=== PATIENT | male | born 1955 | race Caucasian/White ===

== ENCOUNTER 2024-02-11 11:54 | Emergency (ER) | payer MEDICARE, SELFPAY ==
[2024-02-11] VITALS (10 sets, daily range): BP systolic 163–168; BP diastolic 86–88; PULSE 73–95; TEMP 36.6; O2SAT 98–100; BMI 26.6
--- NOTE | 2024-02-11 12:33 | ECG_ITS ---
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
[2024-02-11] MEDS: MORPHINE SULFATE 4 MG/ML VIAL IV (12:57)
[2024-02-11] MEDS: ONDANSETRON PF 4 MG/2 ML VIAL IV (12:57)
--- NOTE | 2024-02-11 13:20 | CT_ITS ---
The [address] [address] Patient Name: CHEYENNE CASON MRN: [id number] date: 1955 Sex: M Assigned Patient Location: ER Current Patient Location: ER Accession/Order Number: [id number] Exam Date: 02/11/2024 13:05 Report Date: 02/11/2024 13:41 At the request of: BARBIE ANNA Procedure: CT head/brain wo con EXAM: CT head/brain wo con, CT cervical spine wo con HISTORY: head injury COMPARISON: None. TECHNIQUE: Axial soft tissue and bone windows from the upper thoracic spine through the calvarium with coronal and sagittal reformats. CT dose reduction technique was used including Automated Exposure Control. Findings: Head: No depressed or calvarial fracture. The paranasal sinuses and mastoid air cells are well aerated. No air-fluid levels. No extra-axial fluid collection. No bleed. No mass effect or midline shift. The walker-white matter differentiation is preserved. The brain parenchymal volume is mildly reduced yet likely age-appropriate. The ventricles are nondilated. The basal cisterns are patent. The craniovertebral junction is unremarkable. Cervical spine: No prevertebral soft tissue swelling. No acute fracture or malalignment. Moderate to severe multilevel degenerative spondylosis. No severe canal stenosis. The visualized lung apices are unremarkable. CT/CT head/brain wo con IMPRESSION: 1. No depressed or calvarial fracture. 2. No acute intracranial bleed. 3. No acute cervical spine fracture or malalignment. Electronically authenticated by: MISBAH MART Date: 02/11/2024 13:41
--- NOTE | 2024-02-11 13:20 | CT_ITS ---
The [address] [address] Patient Name: CHEYENNE CASON MRN: [id number] date: 1955 Sex: M Assigned Patient Location: ER Current Patient Location: ER Accession/Order Number: [id number] Exam Date: 02/11/2024 13:05 Report Date: 02/11/2024 14:15 At the request of: BARBIE ANNA Procedure: CT chest wo con EXAMINATION: CT chest wo con HISTORY: shortness of breath COMPARISON: No relevant comparison available. TECHNIQUE: Axial, Coronal, and Sagittal images were created without the administration of IV contrast material. Dose reduction techniques were achieved by using automated exposure control and/or adjustment of mA and/or kV according to patient size and/or use of iterative reconstruction technique. FINDINGS: LUNGS: Mild emphysematous changes. Trace amount of atelectasis within posterior dependent lung regions. A few scattered calcifications favoring chronic granulomas. PLEURA: No mass, effusion, or pneumothorax. VASCULATURE: No abnormality. JOSE: No mass or pathologic adenopathy. MEDIASTINUM: Calcified subcarinal lymph nodes suggestive of chronic granulomatous disease. CARDIAC: No enlargement, pericardial thickening, or pericardial effusion. Coronary Artery calcifications: Coronary calcifications are mild. AORTA: No aneurysm or dissection. CHEST WALL: No mass or axillary adenopathy BONES: Marked degenerative disc disease of the visible lower cervical spine and moderate degenerative disc disease of mid thoracic spine. No bone lesion or fracture. LIMITED ABDOMEN: No suspicious findings. Limited images of the upper abdomen. OTHER: Negative. CT/CT chest wo con IMPRESSION: 1. Mild emphysematous changes and mild atelectasis. 2. No acute infiltrates or suspicious findings to account for patient's symptoms. Electronically authenticated by: BRICE BANG Date: 02/11/2024 14:15
--- NOTE | 2024-02-11 13:20 | CT_ITS ---
The [address] [address] Patient Name: CHEYENNE CASON MRN: [id number] date: 1955 Sex: M Assigned Patient Location: ER Current Patient Location: ER Accession/Order Number: [id number] Exam Date: 02/11/2024 13:05 Report Date: 02/11/2024 13:41 At the request of: BARBIE ANNA Procedure: CT cervical spine wo con EXAM: CT head/brain wo con, CT cervical spine wo con HISTORY: head injury COMPARISON: None. TECHNIQUE: Axial soft tissue and bone windows from the upper thoracic spine through the calvarium with coronal and sagittal reformats. CT dose reduction technique was used including Automated Exposure Control. Findings: Head: No depressed or calvarial fracture. The paranasal sinuses and mastoid air cells are well aerated. No air-fluid levels. No extra-axial fluid collection. No bleed. No mass effect or midline shift. The walker-white matter differentiation is preserved. The brain parenchymal volume is mildly reduced yet likely age-appropriate. The ventricles are nondilated. The basal cisterns are patent. The craniovertebral junction is unremarkable. Cervical spine: No prevertebral soft tissue swelling. No acute fracture or malalignment. Moderate to severe multilevel degenerative spondylosis. No severe canal stenosis. The visualized lung apices are unremarkable. CT/CT cervical spine wo con IMPRESSION: 1. No depressed or calvarial fracture. 2. No acute intracranial bleed. 3. No acute cervical spine fracture or malalignment. Electronically authenticated by: MISBAH MART Date: 02/11/2024 13:41
[2024-02-11] MEDS: CYCLOBENZAPRINE HCL 10 MG TABLET PO (15:13)
--- NOTE | 2024-02-11 16:19 | ED_ITS ---
HPI HPI - General Adult General Chief complaint: Neck Pain/Injury Stated complaint: HEAD INJURY/NECK INJURY Time Seen by Provider: 02/11/24 12:08 Source: patient Mode of arrival: Wheelchair Limitations: no limitations History of Present Illness HPI narrative: 68-year-old male to the emergency department chief complaint of head injury and neck pain. Patient reports he was cutting down a branch from a tree and it fell on his head. He did not get knocked out or lose consciousness. He reports some pain on the top of his head back of his neck. He denies any chest pain or shortness of breath. He denies any vision changes, numbness, weakness, tingling, difficulty walking. He is otherwise at his baseline health. Related Data Previous Rx's ?Medication ?Instructions ?Recorded cyclobenzaprine 10 mg tablet 10 mg PO BID PRN muscle spasm #10 02/11/24 tabs naproxen 500 mg tablet 500 mg PO BID PRN pain #14 tabs 02/11/24 Allergies Allergy/AdvReac Type Severity Reaction Status Date / Time diphenhydramine AdvReac Severe Shakiness Verified 02/11/24 12:00 [From Benadryl] meperidine [From Demerol] AdvReac Severe Vomiting Verified 02/11/24 12:00 Opioid HPI Opioid Management Most Recent Opioid Data: Last Pain Scale 8 02/11/24 12:57 Last ED Pain Assessment 02/11/24 12:27 Last MAR Pain Assessment 02/11/24 12:57 Review of Systems ROS Status of ROS 10 or more systems reviewed and unremark able except as noted in history and below Exam Narrative Exam Narrative: VITALS: I have reviewed the triage vital signs. GENERAL: Well developed, well appearing adult male in no acute distress. NEURO: Alert and oriented x4. Moves all extremities. Face is symmetric and expressive. Cranial nerves II through XII grossly intact as tested. Muscular strength and sensation grossly intact upper and lower extremities bilaterally. No dysarthria. No aphasia. No ataxia. Normal gait. NIHSS 0. EYES: PERRL. No scleral icterus or conjunctival injection. No discharge. HENT: Normocephalic. No scalp hematoma. Small occipital abrasion. Hearing is grossly intact. Nares grossly patent and without discharge. Mucous membranes moist. NECK: No JVD. Mild discomfort with range of motion of the neck. No midline tenderness. CARDIO: Rhythm regular. Normal rate. No murmur, rub, or gallop. Pulses equal bilaterally in the upper and lower extremity. No lower extremity edema. PULM: Lungs clear to auscultation in all jack. No wheezes, rales, or rhonchi. No conversational dyspnea. No splinting, stridor, or accessory muscle use. GI/: Abdomen is soft and non-tender. Normoactive bowel sounds. EXTREMITIES: Symmetric muscle bulk. No joint swelling. No clubbing, cyanosis, or deformity. SKIN: Warm and dry. Normal turgor. No rash or lesions appreciated. PSYCH: Mood, affect, and interaction is appropriate to the setting. Constitutional Vital Signs, click to edit/add: Last Vital Signs Temp 98 F 02/11/24 12:01 Pulse 79 02/11/24 13:02 Resp 14 02/11/24 13:02 BP 163/88 H 02/11/24 14:06 Pulse Ox 99 02/11/24 14:30 O2 Del Method Room Air 02/11/24 12:01 Course Vital Signs Vital signs: Vital Signs Temperature 98 F 02/11/24 12:01 Pulse Rate 95 H 02/11/24 12:01 Respiratory Rate 20 02/11/24 12:01 Blood Pressure 168/86 H 02/11/24 12:01 Pulse Oximetry 100 02/11/24 12:01 Oxygen Delivery Method Room Air 02/11/24 12:01 Temperature 98 F 02/11/24 12:01 Pulse Rate 79 02/11/24 13:02 Respiratory Rate 14 02/11/24 13:02 Blood Pressure 163/88 H 02/11/24 14:06 Pulse Oximetry 99 02/11/24 14:30 Oxygen Delivery Method Room Air 02/11/24 12:01 Medical Decision Making MDM Narrative Medical decision making narrative: 68-year-old male to the emergency department after being struck in the head with a branch. Vital stable, patient is afebrile. Neurologic examination nonfocal. Given his age head and C-spine cannot be ruled out by clinical decision rules alone therefore CT imaging is ordered. There is some discomfort at the cervical thoracic junction therefore we will also include a chest for the thoracic spine. Morphine and Zofran ordered for pain. Patient agrees with this plan. CT head: Negative CT C-spine: Negative CT chest: Negative Patient reevaluated. He is able to ambulate. No focal neurologic deficits. No evidence of central cord syndrome. His pain was controlled. He reports he is getting some spasm-like pain in his neck and requested Flexeril prescription. First dose given in the ER. Prescription is given for home. He will follow-up with his PCP. We discussed concussion signs symptoms and management. I offered tetanus update given the abrasion to his scalp and he declined. Return precautions were discussed. All questions were answered. Patient was discharged home. Medical Records Medical records reviewed: Yes I reviewed the patient's medical records Imaging Data CT scan - head: Radiologist's impression: ITS Impressions Cervical Spine CT 02/11/24 13:20 IMPRESSION: 1. No depressed or calvarial fracture. 2. No acute intracranial bleed. 3. No acute cervical spine fracture or malalignment. Electronically authenticated by: MISBAH MART Date: 02/11/2024 13:[address] 02/11/24 13:20 IMPRESSION: 1. Mild emphysematous changes and mild atelectasis. 2. No acute infiltrates or suspicious findings to account for patient's symptoms. Electronically authenticated by: BRICE BANG Date: 02/11/2024 14:[address] 02/11/24 13:20 IMPRESSION: 1. No depressed or calvarial fracture. 2. No acute intracranial bleed. 3. No acute cervical spine fracture or malalignment. Electronically authenticated by: MISBAH MART Date: 02/11/2024 13:41 Discharge Plan Discharge Stand Alone Forms: Work/School Release, Portal Instructions Chief Complaint: Neck Pain/Injury Clinical Impression: Strain of neck muscle, Closed head injury Patient Disposition: Home, Self-Care Time of Disposition Decision: 15:07 Condition: Good Mode of Transportation: Private Vehicle Prescriptions / Home Meds: New cyclobenzaprine 10 mg tablet 10 mg PO BID PRN (Reason: muscle spasm) Qty: 10 0RF naproxen 500 mg tablet 500 mg PO BID PRN (Reason: pain) Qty: 14 0RF Print Language: Estonian Instructions: Head Injury (ED), Cervical Sprain (ED) Additional Instructions: Call the office of your primary care doctor to arrange for follow-up within the above-stated timeframe. Your ED visit was focused on your acute issue and does not replace primary care. You should review your labs, imaging, and diagnoses from this ED visit with your primary care physician. There may be non-emergent/ incidental findings that need further evaluation. You should review your vital signs including blood pressure with your PCP. If you were prescribed medications you should discuss possible side-effects and drug interactions with your pharmacist. Call 911 or go to the nearest Emergency Department if you develop any new or worsening symptoms. Seek immediate medical attention if you develop: new or worsening headache, nausea, vomiting, confusion, weakness, loss of motion in your arms or legs, loss of control of your urine or stool, difficulty waking from sleep, or any new or worsening symptoms. Seek immediate medical attention if you develop: increasing pain, numbness, tingling, weakness, loss of motion in your arms or legs, loss of control of your urine or stool, fever, abdominal pain, chest pain, shortness of breath, or any new or worsening symptoms. Referrals: Physician,Non-Staff, MD [Primary Care Provider] - 1 week Discharge Date/Time: 02/11/24 15:20
== END 2024-02-11 15:20 | disposition home or self-care (01) ==
PROVIDERS: Emergency Provider Student in an Organized Health Care Education/Training Program
DX: S09.8XXA Other specified injuries of head, initial encounter (principal); S16.1XXA Strain of muscle, fascia and tendon at neck level, initial encounter; W20.8XXA Other cause of strike by thrown, projected or falling object, initial encounter
CPT/HCPCS: 70450; 71250; 72125; 93005; 96374; 96375; 99285; J2270; J2405

== ENCOUNTER 2024-02-18 07:30 | Outpatient (OUT) | payer MEDICARE, SELFPAY ==
--- NOTE | 2024-02-18 | XR_ITS ---
The [place] [id number] Patient Name: CHEYENNE CASON MRN: [id number] date: 1955 Sex: M Assigned Patient Location: [facility] Current Patient Location: Accession/Order Number: [id number] Exam Date: 02/18/2024 07:45 Report Date: 02/19/2024 05:20 At the request of: CHUNG COOK Procedure: XR shoulder LT min 2V PROCEDURE: XR shoulder LT min 2V HISTORY: injury of left shoulder, initial encounter COMPARISON: None. FINDINGS: BONES:Bone anchor from prior rotator cuff repair within lateral aspect of humeral head. No fracture, dislocation, bone lesion. Mild degenerative changes of acromioclavicular joint. SOFT TISSUES:No visible soft tissue swelling. EFFUSION:None visible. OTHER: Negative. XR/XR shoulder LT min 2V IMPRESSION: 1. Surgical changes and mild degenerative changes. 2. No appreciable acute abnormality. Electronically authenticated by: BRICE BANG Date: 02/19/2024 05:20
--- OUTSIDE RECORDS SUMMARY | 2024-02-18 07:34 | XMS_ITS | CCD ---
Author Organization [facility] Providers Care [employer] Name Role Phone Sherwin Haney Unavailable Unavailable Unavailable Olexa, Jackie Unavailable Niurka Huertas Unavailable DR EMILY CAMARILLO V Consulting Unavailable OLEXA, JACKIE Admitting Unavailable OLEXA, JACKIE Attending Unavailable OLEXA, JACKIE Consulting Unavailable BETI, DR BRICE Rodney Consulting Unavailable DIANE, DR GARCIA Primary Care Unavailable OLEXA, JACKIE Admitting Unavailable OLEXA, JACKIE Attending Unavailable WILLI PINON Consulting Unavailable OLEXA, JACKIE Consulting Unavailable OLEXA, JACKIE Attending Unavailable DIANE, DR GARCIA Primary Care Unavailable WILLI PINON Consulting Unavailable OLEXA, JACKIE Admitting Unavailable OLEXA, JACKIE Consulting Unavailable OLEXA, JACKIE Attending Unavailable JAIDEN BAPTISTE Consulting Unavailable DIANE, DR GARCIA Primary Care Unavailable OLEXA, JACKIE Admitting Unavailable NATALY SILVERMAN Consulting Unavailable OLEXA, JACKIE Consulting Unavailable OLEXA, JACKIE Attending Unavailable JAIDEN BAPTISTE Consulting Unavailable DIANE, DR GARCIA Primary Care Unavailable OLEXA, JACKIE Admitting Unavailable SERGE GUERRA Consulting Unavailable OLEXA, JACKIE Consulting Unavailable AASHISH STRINGER Primary Care Physician [phone] Niurka Mg Attending Unavailable Niurka Mg Admitting Unavailable [facility] Unavailable MALLORY Mg [facility] Julio OROZCO Attending Unavailable NIURKA MG Attending Unavailable NIURKA MG Attending Unavailable Julio OROZCO Admitting Unavailable Julio OROZCO Attending Unavailable Julio OROZCO Referring Unavailable Julio OROZCO Admitting Unavailable Julio OROZCO Attending Unavailable Julio OROZCO Referring Unavailable Allergies Allergy Classification Reported Allergen(s) Allergy Type Date of Onset Reaction(s) Facility (15 sources) diphenhydrAMINE; Translations: [diphenhydrAMINE] Drug Allergy 2 Restless legs (disorder) [facility] (18 sources) Meperidine; Translations: [meperidine] Drug Allergy 2 Nausea (finding) [facility] (2 sources) carvedilol; Translations: [Coreg TABS] Drug Allergy [facility] 600 DO Work Phone: (1 source) diphenhydrAMINE Drug Allergy [facility] Repository (2 sources) Meperidine; Translations: [Demerol] Drug Allergy [facility] Repository (1 source) diphenhydrAMINE Drug Allergy 2 [facility] Repository (1 source) Meperidine Drug Allergy 2 [facility] Repository Medications Current Medications Medication Drug Class(es) Dates Sig (Normalized) Sig (Original) acetaminophen 325 mg / HYDROcodone bitartrate 5 mg oral tablet (5 sources) Opioid Agonist Start: 01-06-2022 take 1 tablet by mouth every four hours as needed for pain HYDROcodone-Aceta minophen 5-325 MG 1 tablet as needed for pain Orally up to every 4 hrs for 7 days ESHA: [id number] Jan, Active Start: 08-26-2021 take 1 tablet by collette th every four hours as needed for pain HYDROcodone-Acetaminophen 5-325 MG 1 tab let as needed for pain Orally up to every 4 hrs for 5 days Aug, Active Start: 11-07-2017 End: 12-18-2020 take 1 tablet by mouth every six hours Hydrocodone-Acetaminophen (Patriot) 5-325 mg tablet Discontinued 1 TAB PO Q6H November 07, 2017 December 18, 2020 9:33am aspirin 81 mg delayed release oral tablet (1 source) Platelet Aggregation Inhibitor, Nonsteroidal Anti-inflammatory Drug Start: 12-18-2020 take 81 mg by mouth once daily Aspirin Active 81 MG PO Daily December 18, 2020 12:00am B-Complex with B-12 (3 sources) Start: 09-22-2023 B-Complex with B-12 Oral, Daily Start Date: 09/22/23 Status: Ordered carvedilol 3.125 mg oral tablet (1 source) alpha-Adrenergic Juancho, beta-Adrenergic Juancho Start: 12-21-2020 take 1 tablet by mouth twice daily at mealtime Carvedilol (Coreg) 3.125 mg tablet Active 3.125 MG PO Twice daily 60 December 21, 2020 12:00am must administer with a meal/food ciprofloxacin 500 mg oral tablet (1 source) Quinolone Antimicrobial Start: 02-11-2024 take 1 tablet by mouth twice daily Cipro 500 mg Tab 500 mg = 1 tab(s), Oral, BID, start 3 days prior to procedure, # 14 tab(s), Refills(s) 0, Pharmacy: [facility]/pharmacy #[id number], 176, cm, 12/22/23 8:42:00 EDT, Height/Length Dosing, 82, kg, 12/22/23 8:42:00 EDT, Weight Dosing Start Date: 02/11/24 Status: Ordered cyclobenzaprine hydrochloride 10 mg oral tablet (5 sources) Muscle Relaxant Start: 11-07-2017 take 10 mg by mouth every eight hours Cyclobenzaprine Active 10 MG PO Q8H November 07, 2017 12:00am Flexeril 10 MG T ABS TAKE 1 TABLET DAILY NEEDED. Quantity: 0 Refills: 0 Ordered: 21-May-2021 DO Active Fish Oils (1 source) Start: 09-22-2023 Fish Oil Oral Start Date: 09/22/23 Status: Ordered Multi Vitamins oral tablet (3 sources) Start: 09-22-2023 Multi Vitamins oral tablet Oral, Daily Start Date: 09/22/23 Status: Ordered Multivitamin (Multiple Vitamins) Tablet (1 source) Start: 03-16-2017 take 1 tablet by mouth once daily Multivitamin (Multiple Vitamins) Tablet Active 1 TAB PO Daily March 16, 2017 12:00am naproxen 500 mg oral tablet (1 source) Nonsteroidal Anti-inflammatory Drug Start: 11-07-2023 End: 11-21-2023 take 1 tablet by mouth twice daily at mealtime Naprosyn 500 mg Tab 500 mg = 1 tab(s), Oral, BID, with food, X 14 day(s), # 28 tab(s), Refills(s) 0, Pharmacy: [facility]/pharmacy #[id number] Start Date: 11/07/23 Stop Date: 11/21/23 Status: Ordered oxaprozin 600 mg oral tablet (3 sources) Nonsteroidal Anti-inflammatory Drug Start: 11-07-2017 take 600 mg by mouth twice daily Oxaprozin Active 600 MG PO Twice daily November 07, 2017 12:00am Psyllium (3 sources) Start: 09-22-2023 Metamucil Oral Start Date: 09/22/23 Status: Ordered sulfamethoxazole 800 mg / trimethoprim 160 mg oral tablet (1 source) Dihydrofolate Reductase Inhibitor Antibacterial, Sulfonamide Antimicrobial Start: 11-07-2023 End: 11-21-2023 Bactrim D.S. 800 mg-160 mg Tab 1 tab(s), Oral, BID for 14 day(s), 28 tab(s), Refill(s) 0, [facility]/pharmacy #[id number] Start Date: 11/07/23 Stop Date: 11/21/23 Status: Ordered Vitamin B Complex (8 sources) Start: 03-16-2017 take 2 tablets by mouth once daily Vitamin B Complex Active 2 TAB PO Daily March 16, 2017 12:00am Vitamin B Comple x Active Completed/Discontinued Medications Medication Drug Class(es) Dates Sig (Normalized) Sig (Original) empagliflozin 10 mg oral tablet (2 sources) Sodium-Glucose Cotransporter 2 Inhibitor Start: 01-09-2022 take 1 tablet by mouth once daily Jardiance 10 MG Oral Tablet TAKE 1 TABLET BY MOUTH ONCE DAILY Quantity: 90 Refills: 0 Ordered: 09-Jan-2022 Liam Shi MD Start : 09-Jan-2022 Active new start ibuprofen 800 mg oral tablet (1 source) Nonsteroidal Anti-inflammatory Drug Start: 03-16-2017 End: 11-07-2017 take 800 mg by mouth three times daily Ibuprofen Discontinued 800 MG PO Three times daily March 16, 2017 9:43pm November 07, 2017 7:34pm Multi-Vitamin Oral Tablet (4 sources) take 1 tablet by mouth once daily Multi-Vitamin Oral Tablet TAKE 1 TABLET DAILY. Quantity: 0 Refills: 0 Ordered: 21-May-2021 DO Active Gregory 7-Ojt-Hhh-Fish Oil (Fish Oil) 1,000 mg (120 mg-180 mg) Capsule (1 source) Start: 03-16-2017 End: 12-18-2020 take 1 capsule by mouth once daily Gregory 9-Dqt-Vyx-Fish Oil (Fish Oil) 1,000 mg (120 mg-180 mg) Capsule Discontinued 1000 MG PO Daily March 16, 2017 12:00am December 18, 2020 9:32am sacubitril 49 mg / valsartan 51 mg oral tablet (12 sources) Angiotensin 2 Receptor Juancho Start: 01-01-2022 take 1 tablet by mouth twice daily Entresto 49-51 MG Oral Tablet take 1 tablet by mouth twice a day Quantity: 180 Refills: 3 Ordered: 11-Feb-2022 Liam Shi MD Start : 01-Jan-2022 Active Start: 12-18-2020 take 1 tablet by collette th twice daily Sacubitril-Valsartan (Entresto) 24-26 mg tablet Active 1 TAB PO Twice daily December 18, 2020 12:00am ENTRESTO Active take 1 tablet by collette th twice daily Entresto 49-51 MG Oral Tablet TAKE 1 TABLET BY MOUTH TWICE A DAY Quantity: 0 Refills: 0 Ordered: 21-May-2021 DO Active spironolactone 25 mg oral tablet (4 sources) Aldosterone Antagonist Start: 05-21-2021 take 1 tablet by mouth once daily Spironolactone 25 MG Oral Tablet TAKE 1 TABLET DAILY. Quantity: 90 Refills: 3 Ordered: 21-May-2021 Liam Shi MD Start : 21-May-2021 Active new start Triamcinolone (7 sources) Corticosteroid Start: 09-04-2016 Kenalog -40 mg 30 Aug, 2016 Vitamin B Complex Oral Tablet (4 sources) take 1 tablet by mouth once daily Vitamin B Complex Oral Tablet TAKE 1 TABLET DAILY. Quantity: 0 Refills: 0 Ordered: 21-May-2021 DO Active Problems Active Problems Problem Classification Problem Date Documented Date Episodic/Chronic Cardiac dysrhythmias (4 sources) Premature atrial contraction; Translations: [Supraventricular premature beats] Chronic Conduction disorders (5 sources) Left bundle branch block; Translations: [Other left bundle branch block] Onset: Chronic Congestive heart failure; nonhypertensive (12 sources) Chronic systolic heart failure; Translations: [Chronic systolic heart failure] Onset: 2 Chronic Disorders of lipid metabolism (1 source) Hyperlipidemia, unspecified; Translations: [HYPERLIPIDEMIA UNSPECIFIED] Onset: 2 Chronic Essential hypertension (4 sources) Hypertensive disorder; Translations: [Unspecified essential hypertension] Chronic Genitourinary symptoms and ill-defined conditions (5 sources) Urgent desire to urinate; Translations: [Urgency of urination] Onset: 4 Episodic Hemorrhoids (7 sources) Internal hemorrhoids without complication; Translations: [Internal hemorrhoids without mention of complication] Episodic Hypertension with complications and secondary hypertension (1 source) Hypertensive heart disease with heart failure; Translations: [HTN HEART DISEASE W/HEART FAIL] Onset: 2 Chronic Osteoarthritis (13 sources) Osteoarthritis of knee; Translations: [Unilateral primary osteoarthritis, right knee] Onset: 2 Resolved: 2 Chronic Other and unspecified benign neoplasm (7 sources) History of polyp of colon; Translations: [History of colon polyps] Episodic Other and unspecified benign neoplasm (7 sources) Benign neoplasm of rectum and anal canal; Translations: [Benign neoplasm of rectum and anal canal] Episodic Other bone disease and musculoskeletal deformities (1 source) Costal chondritis 03-16-2017 Episodic Other connective tissue disease (1 source) Presence of right artificial knee joint; Translations: [PRESENCE RT ARTIFICIAL KNEE JOINT] Onset: 2 Chronic Other male genital disorders (4 sources) Male erectile dysfunction, unspecified; Translations: [Erectile dysfunction] Onset: 4 Chronic Other nervous system disorders (7 sources) Bilateral carpal tunnel syndrome; Translations: [Carpal tunnel syndrome, bilateral upper limbs] Chronic Other nervous system disorders (7 sources) Chronic pain; Translations: [Other chronic pain] Chronic Other nervous system disorders (1 source) Carpal tunnel syndrome, bilateral upper limbs Onset: 2 Resolved: 2 Chronic Other nervous system disorders (5 sources) Carpal tunnel syndrome of right wrist; Translations: [Carpal tunnel syndrome, right upper limb] Chronic Other nervous system disorders (6 sources) Carpal tunnel syndrome, right upper limb; Translations: [CARPAL TUNNEL SYND RIGHT UPPER LIMB] Onset: 2 Resolved: 2 Chronic Other nervous system disorders (3 sources) Carpal tunnel syndrome of left wrist; Translations: [Carpal tunnel syndrome, left upper limb] Chronic Other nervous system disorders (6 sources) Carpal tunnel syndrome, left upper limb; Translations: [CARPAL TUNNEL SYND LEFT UPPER LIMB] Onset: 2 Resolved: 2 Chronic Other nutritional; endocrine; and metabolic disorders (4 sources) Overweight in adulthood with body mass index of 25 or more but less than 30; Translations: [Overweight] Episodic Other screening for suspected conditions (not mental disorders or infectious disease) (8 sources) Electrocardiogram abnormal; Translations: [Nonspecific abnormal electrocardiogram [ECG] [EKG]] Onset: 4 Episodic Spondylosis; intervertebral disc disorders; other back problems (14 sources) Degeneration of cervical intervertebral disc; Translations: [Other cervical disc degeneration, unspecified cervical region] Chronic Spondylosis; intervertebral disc disorders; other back problems (7 sources) Cervical radiculopathy; Translations: [Radiculopathy, cervical region] Episodic Sprains and strains (9 sources) Sprain of knee; Translations: [Sprain of unspecified site of right knee, initial encounter] Onset: 2 Resolved: 2 Episodic Unclassified (1 source) CONTACT W/AND (SUSP) EXPOS COVID-19; Translations: [CONTACT W/AND (SUSP) EXPOS COVID-19] Onset: 2 Past or Other Problems Problem Classification Problem Date Documented Date Episodic/Chronic Nonspecific chest pain (5 sources) Chest discomfort; Translations: [Other chest pain] Onset: 08-27-2021 Episodic Other aftercare (1 source) half-way (current) use of anticoagulants; Translations: [ASSISTED CURRNT USE ANTICOAGULANTS] Onset: 01-08-2022 Episodic Other aftercare (1 source) Other long term care phlebotomist (current) drug therapy; Translations: [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 CURRENT DRUG THERAPY] Onset: 08-29-2021 Episodic Other connective tissue disease (5 sources) Pain in right hand; Translations: [PAIN IN RIGHT HAND] Onset: 08-20-2021 Resolved: 09-10-2021 Episodic Other connective tissue disease (2 sources) Pain in left hand; Translations: [PAIN IN LEFT HAND] Onset: 08-21-2021 Resolved: 09-10-2021 Episodic Other connective tissue disease (2 sources) Other shoulder lesions, right shoulder Onset: 09-10-2021 Resolved: 10-15-2021 Episodic Other nervous system disorders (2 sources) Anesthesia of skin; Translations: [ANESTHESIA OF SKIN] Onset: 12-30-2021 Resolved: 12-30-2021 Episodic Other non-traumatic joint disorders (2 sources) Pain in right shoulder Onset: 09-10-2021 Resolved: 10-15-2021 Episodic Residual codes; unclassified (3 sources) Other specified postprocedural states Onset: 09-10-2021 Resolved: 01-06-2022 Episodic Unclassified (4 sources) Never smoked tobacco; Translations: [Never a smoker] Results Test Name Value Interpretation Reference Range Facility [facility] 02-16-2024 Anion gap [Moles/Vol] 10 mmol/L Normal 6-16 [facility] Comment on above: Performed By: #### 2 [id number] #### [facility] [address] [place] [address] Calcium [Mass/Vol] 9.3 mg/dL Normal 8.9-11.1 [facility] Comment on above: Performed By: #### 2 [id number] #### [facility] [address] [place] [address] Chloride [Moles/Vol] 101 mmol/L Normal 101-111 [facility] Comment on above: Performed By: #### 2 [id number] #### [facility] [address] [place] [address] CO2 [Moles/Vol] 30 mmol/L Normal 21-31 [facility] Comment on above: Performed By: #### 2 [id number] #### [facility] [address] [place] [address] Creatinine [Mass/Vol] 0.9 mg/dL Normal 0.5-1.3 [facility] Comment on above: Performed By: #### 2 [id number] #### [facility] [address] [place] [address] Glucose [Mass/Vol] 113 mg/dL Normal 55-199 [facility] Comment on above: Performed By: #### 2 [id number] #### [facility] [address] [place] [address] Potassium [Moles/Vol] 4.0 mmol/L Normal 3.5-5.3 [facility] Comment on above: Performed By: #### 2 [id number] #### [facility] [address] [place] [address] Sodium [Moles/Vol] 137 mmol/L Normal 135-145 [facility] Comment on above: Performed By: #### 2 [id number] #### [facility] [address] [place] [address] Urea nitrogen [Mass/Vol] 13 mg/dL Normal 5-21 [facility] Comment on above: Performed By: #### 2 [id number] #### [facility] [address] [place] [address] Urea nitrogen/Creatinine [Mass ratio] 14 No Units Normal 10-20 [facility] Comment on above: Performed By: #### 2 [id number] #### [facility] [address] [place] [address] CBC w/ Auto Diffon 4 Basophils/100 WBC (Bld) 2.8 % High 0.0-2.0 [facility] Comment on above: Performed By: #### 2 [id number] #### [facility] [address] [place] [address] Basophils/Leukocytes Auto (Bld) [Pure # fraction] 0.2 E9/L Normal 0.0-0.2 [facility] Comment on above: Performed By: #### 2 [id number] #### [facility] [address] [place] [address] Eosinophils (Bld) [#/Vol] 0.1 E9/L Normal 0.0-0.5 [facility] Comment on above: Performed By: #### 2 [id number] #### [facility] [address] [place] [address] Eosinophils/100 WBC (Bld) 1.3 % Normal 0.0-8.0 [facility] Comment on above: Performed By: #### 2 [id number] #### [facility] [address] [place] [address] Erythrocyte distribution width (RBC) [Ratio] 13.9 % Normal 10.9-14.2 [facility] Comment on above: Performed By: #### 2 [id number] #### [facility] [address] [place] [address] Hematocrit (Bld) [Volume fraction] 47.5 % Normal 37.7-49.0 [facility] Comment on above: Performed By: #### 2 [id number] #### [facility] [address] [place] [address] Hemoglobin (Bld) [Mass/Vol] 16.0 g/dL Normal 13.5-17.5 [facility] Comment on above: Performed By: #### 2 [id number] #### [facility] [address] [place] [address] Lymphocytes (Bld) [#/Vol] 2.0 E9/L Normal 1.0-4.0 [facility] Comment on above: Performed By: #### 2 [id number] #### [facility] [address] [place] [address] Lymphocytes/100 WBC (Bld) 22.9 % Normal 14.0-50.0 [facility] Comment on above: Performed By: #### 2 [id number] #### [facility] [address] [place] [address] MCH (RBC) [Entitic mass] 32.4 pg Normal 27.0-34.0 [facility] Comment on above: Performed By: #### 2 [id number] #### [facility] [address] [place] [address] MCHC (RBC) [Mass/Vol] 33.6 g/dL Normal 31.4-36.0 [facility] Comment on above: Performed By: #### 2 [id number] #### [facility] [address] [place] [address] MCV (RBC) [Entitic vol] 96.3 fL Normal 80.0-100.0 [facility] Comment on above: Performed By: #### 2 [id number] #### [facility] [address] [place] [address] Monocytes (Bld) [#/Vol] 0.6 E9/L Normal 0.2-1.0 [facility] Comment on above: Performed By: #### 2 [id number] #### [facility] [address] [place] [address] Neutrophils (Bld) [#/Vol] 5.7 E9/L Normal 2.0-7.5 [facility] Comment on above: Performed By: #### 2 [id number] #### [facility] [address] [place] [address] Neutrophils/100 WBC (Bld) 66.1 % Normal 36.0-75.0 [facility] Comment on above: Performed By: #### 2 [id number] #### [facility] [address] [place] [address] Platelet mean volume (Bld) [Entitic vol] 8.5 fL Normal 6.4-10.8 [facility] Comment on above: Performed By: #### 2 [id number] #### [facility] [address] [place] [address] Platelets (Bld) [#/Vol] 258.0 E9/L Normal 150.0-500.0 [facility] Comment on above: Performed By: #### 2 [id number] #### [facility] [address] [place] [address] RBC (Bld) [#/Vol] 4.9 E12/L Normal 4.3-5.9 [facility] Comment on above: Performed By: #### 2 [id number] #### [facility] [address] [place] [address] WBC corrected for nucl RBC Auto (Bld) [#/Vol] 8.6 E9/L Normal 4.0-11.0 [facility] Comment on above: Performed By: #### 2 [id number] #### [facility] [address] [place] [address] CHEMISTRYOrdered By: SYSTEM SYSTEM on 02-16-2024 Anion gap [Moles/Vol] 10 mmol/L Normal 6 - 16 mEq/L R emisol Chem Calcium [Mass/Vol] 9.3 mg/dL Normal 8.9 - 11. 1 mg/dL [facility] Chloride [Moles/Vol] 101 mmol/L Normal 101 - 1 11 mmol/L [facility] CO2 [Moles/Vol] 30 mmol/L Normal 21 - 31 mmol/L [facility] Creatinine [Mass/Vol] 0.9 mg/dL Normal 0.5 - 1.3 mg/dL [facility] eGFR 93 mL/min/1.73 m2 Normal >=59mL/min /1 .73 m2 [facility] Glucose [Mass/Vol] 113 mg/dL Normal 55 - 199 mg/dL [facility] Potassium [Moles/Vol] 4.0 mmol/L Normal 3.5 - 5.3 mmol/L [facility] Sodium [Moles/Vol] 137 mmol/L Normal 135 - 145 mmol/L [facility] Urea nitrogen [Mass/Vol] 13 mg/dL Normal 5 - 21 mg/dL [facility] Urea nitrogen/Creatinine [Mass ratio] 14 mg/mg Normal 10 - 20 [facility] COAGULATIONOrdered By: Daniel Jimenez on 02-16-2024 aPTT Coag (PPP) [Time] 29.5 s Normal 25.1 - 36.5 second(s) [facility] Comment on above: Interpretive Data: Lalo thompson 15 days - 4 weeks 1 - 5 months 6 - 11 months 1 - 5 years 6 - 10 years 11 - 17 years PTT Mean: 35.4 (27.6-45.6) Mean: 33.5 (24.8-40.7) Mean: 32.4 (25.1-40.7) Mean: 31.6 (24.0-39.2) Mean: 31.6 (26.9-38.7) Mean: 31.0 (24.6-38.4) Pediatric Reference ranges were obtained from a study by Luis Mcdonald et al. prepared from 1437 samples obtained at 7 different centers using the same coagulation reagent and instrumentation as [facility]. Currently there are no coagulation studies available worldwide for children to 14 days, and no normal ranges. Heparin therapeutic range (represented by Anti-Factor Xa activity of 0.2 - 0.4 U/mL) corresponds to PTT of 56.6 - 109.0 sec. INR Coag (PPP) [Relative time] 1.04 {INR} Invalid Interpretation Code [facility] Comment on above: Interpretive Data: I NR results are specifically intended to assess patients stabilized on long-term Anticoagulation therapy suggested INR s Less Intensive Anticoagulation 2.0 3.0 Conventional Range 3.0 4.5 PT Coag (PPP) [Time] 11.7 s Normal 9.4 - 1 2.5 second(s) [facility] Comment on above: Interpretive Data: 1 5 days - 4 weeks 1 - 5 months 6 -11 months 1-5 years 6-10 years 11 -17 years Mean: 11.2 (9.5-12.6) Mean: 11.0 (9.7-12.8) Mean: 11.0 (9.8-13.0) Mean: 11.3 (9.9-13.4) Mean: 11.7 (10.0-14.6) Mean: 11.8 (10.0 - 14.1) Pediatric Reference ranges were obtained from a study by Luis Mcdonald et al. prepared from 1437 samples obtained at 7 different centers using the same coagulation reagent and instrumentation as [facility]. Currently there are no coagulation studies available worldwide for children to 14 days, and no normal ranges. HEMATOLOGYOrdered By: SYSTEM SYSTEM on 02-16-2024 Basophils/100 WBC (Bld) 2.8 % High 0.0 - 2.0 % Remisol Heme Basophils/Leukocytes Auto (Bld) [Pure # fraction] 0.2 E9/L Normal 0.0 - 0.2 E9/L Rem[facility] Heme Eosinophils (Bld) [#/Vol] 0.1 E9/L Normal 0.0 - 0.5 E9/L Remisol [facility]e Eosinophils/100 WBC (Bld) 1.3 % Normal 0.0 - 8.0 % Remisol Heme Erythrocyte distribution width (RBC) [Ratio] 13.9 % Normal 10.9 - 14.2 % Remisol Heme Hematocrit (Bld) [Volume fraction] 47.5 % Normal 37.7 - 49.0 % Remisol Heme Hemoglobin (Bld) [Mass/Vol] 16.0 g/dL Normal 13.5 - 17.5 gm/dL Rem[facility] Heme Lymphocytes (Bld) [#/Vol] 2.0 E9/L Normal 1.0 - 4.0 E9/L Rem[facility]e Lymphocytes/100 WBC (Bld) 22.9 % Normal 14.0 - 50.0 % Remisol Heme MCH (RBC) [Entitic mass] 32.4 pg Normal 27.0 - 34.0 pg Remisol Heme MCHC (RBC) [Mass/Vol] 33.6 g/dL Normal 31.4 - 36.0 gm/dL Remisol Heme MCV (RBC) [Entitic vol] 96.3 fL Normal 80.0 - 100.0 fL Rem[facility] Heme Monocytes (Bld) [#/Vol] 0.6 E9/L Normal 0.2 - 1.0 E9/L Remisol Heme Monocytes/100 WBC (Bld) 6.9 % Normal 4.0 - 14.0 % Remisol Heme Neutrophils (Bld) [#/Vol] 5.7 E9/L Normal 2.0 - 7.5 E9/L Remisol Heme Neutrophils/100 WBC (Bld) 66.1 % Normal 36.0 - 75.0 % Remisol Heme Platelet mean volume (Bld) [Entitic vol] 8.5 fL Normal 6.4 - 10.8 fL Remisol Heme Platelets (Bld) [#/Vol] 258.0 E9/L Normal 150.0 - 500.0 E9/L Remisol Heme RBC (Bld) [#/Vol] 4.9 E12/L Normal 4.3 - 5.9 E12/L Remisol Heme WBC corrected for nucl RBC Auto (Bld) [#/Vol] 8.6 E9/L Normal 4.0 - 11.0 E9/L Remisol Heme PT & PTTon 02-16-2024 aPTT Coag (PPP) [Time] 29.5 second(s) Normal 25.1-36.5 [facility] Comment on above: Result Comment: Para meter 15 days - 4 weeks 1 - 5 months 6 - 11 months 1 - 5 years 6 - 10 years 11 - 17 years PTT Mean: 35.4 (27.6-45.6) Mean: 33.5 (24.8-40.7) Mean: 32.4 (25.1-40.7) Mean: 31.6 (24.0-39.2) Mean: 31.6 (26.9-38.7) Mean: 31.0 (24.6-38.4) Pediatric Reference ranges were obtained from a study by pura Willis al. prepared from 1437 samples obtained at 7 different centers using the same coagulation reagent and instrumentation as [facility]. Currently there are no coagulation studies available worldwide for children to 14 days, and no normal ranges. Heparin therapeutic range (represented by Anti-Factor Xa activity of 0.2 - 0.4 U/mL) corresponds to PTT of 56.6 - 109.0 sec. Performed By: #### 1 [id number] #### [facility] [address] [place] [address] INR Coag (PPP) [Relative time] 1.04 {INR} Invalid Interpretation Code [facility] Comment on above: Result Comment: INR results are specifically intended to assess patients stabilized on long-term Anticoagulation therapy suggested INR?s ?Less Intensive Anticoagulation? 2.0 ? 3.0 Conventional Range 3.0 ? 4.5 Performed By: #### 1 [id number] #### [facility] [address] [place] [address] PT Coag (PPP) [Time] 11.7 second(s) Normal 9.4-12.5 [facility] Comment on above: Result Comment: 15 d ays - 4 weeks 1 - 5 months 6 -11 months 1- 5 years 6-10 years 11 -17 years Mean: 11.2 (9.5-12.6) Mean: 11.0 (9.7-12.8) Mean: 11.0 (9.8-13.0) Mean: 11.3 (9.9-13.4) Mean: 11.7 (10.0-14.6) Mean: 11.8 (10.0 - 14.1) Pediatric Reference ranges were obtained from a study by Luis Mcdonald et al. prepared from 1437 samples obtained at 7 different centers using the same coagulation reagent and instrumentation as [facility]. Currently there are no coagulation studies available worldwide for children to 14 days, and no normal ranges. Performed By: #### 1 [id number] #### [facility] [address] [place] [address] UA with Cult Rflxon 02-16-20 24 Bilirubin Ql (U) Negative Normal Negative [facility] Comment on above: Performed By: #### 4 [id number] #### [facility] [address] [place] [address] Clarity (U) Clear Normal Clear [facility] Comment on above: Performed By: #### 4 [id number] #### [facility] [address] [place] [address] Color (U) Light-Yellow Normal Yellow [facility] Comment on above: Result Comment: Micr oscopic readings are only performed on those samples that meet specific criteria set forth by [facility]. Performed By: #### 4 [id number] #### [facility] [address] [place] [address] Glucose Ql (U) 1+ mg/dL Abnormal Negative [facility] Comment on above: Performed By: #### 4 [id number] #### [facility] [address] [place] [address] Hemoglobin Auto test strip (U) [Mass/Vol] Trace Abnormal Negative [facility] Comment on above: Performed By: #### 4 [id number] #### [facility] [address] [place] [address] Ketones Auto test strip Ql (U) Trace Abnormal Negative [facility] Comment on above: Performed By: #### 4 [id number] #### [facility] [address] [place] [address] Leukocyte esterase Auto test strip Ql (U) Negative Normal Negative [facility] Comment on above: Performed By: #### 4 [id number] #### [facility] [address] [place], [place] [id number] Nitrite Auto test strip Ql (U) Negative Normal Negative [facility] Comment on above: Performed By: #### 4 [id number] #### [facility] [address] [place] [address] pH (U) 6.0 [pH] Invalid Interpretation Code 5.0-9.0 [facility] Comment on above: Performed By: #### 4 [id number] #### [facility] [address] [place] [address] Protein Ql (U) Trace Abnormal Negative [facility] Comment on above: Performed By: #### 4 [id number] #### [facility] [address] [place] [address] Specific gravity (U) [Rel density] 1.015 Invalid Interpretation Code 1.005-1.030 [facility] Comment on above: Performed By: #### 4 [id number] #### [facility] [address] [place] [address] Urobilinogen (U) [Mass/Vol] Negative Normal Negative [facility] Comment on above: Performed By: #### 4 [id number] #### [facility] [address] [place] [address] Type of Urine collection method Clean Catch Normal [facility] Comment on above: Performed By: #### 4 [id number] #### [facility] [address] [place] [address] URINALYSISOrdered By: SYSTEM SYSTEM on 02-16-2024 Bilirubin Ql (U) Negative Normal Negativemg/ d L [facility] UA Auto SS Clarity (U) Clear (02/16/24 8:05 AM) Normal Clear [facility] UA Auto SS Color (U) Light-Yellow 1 (02/16/24 8:05 AM) Normal Yellow [facility] UA Auto SS Comment on above: Interpretive Data: M icroscopic readings are only performed on those samples that meet specific criteria set forth by [facility]. Glucose Ql (U) 1+ mg/dL Invalid Interpretation Code Negativemg/d L [facility] UA Auto SS Hemoglobin Auto test strip (U) [Mass/Vol] Trace mg/dL Invalid Interpretation Code Negativemg/d L [facility] UA Auto SS Ketones Auto test strip Ql (U) Trace mg/dL Invalid Interpretation Code Negativemg/d L [facility] UA Auto SS Leukocyte esterase Auto test strip Ql (U) Negative Normal NegativeLeu/ uL [facility] UA Auto SS Nitrite Auto test strip Ql (U) Negative Normal Negativemg/d L [facility] UA Auto SS pH (U) 6.0 *NA* (02/16/24 8:05 AM) Invalid Interpretation Code 5.0 - 9.0 [facility] UA Auto SS Protein Ql (U) Trace mg/dL Invalid Interpretation Code Negativemg/d L [facility] UA Auto SS Specific gravity (U) [Rel density] 1.015 *NA* (02/16/24 8:05 AM) Invalid Interpretation Code 1.005 - 1.030 [facility] UA Auto SS Urobilinogen (U) [Mass/Vol] Negative Normal Negativemg/d L [facility] UA Auto SS URINALYSISOrdered By: Jose Carlos Stoddard on 02-16-2024 UA Spec Desc Clean Catch (02/16/24 8:05 AM) Normal [facility] UA Auto SS XR Chest 2 Viewson 4 XR Chest 2 Views Exam Date/Time: 02/16/2024 08:16 EDT Reason for Exam: P.A.T. Report IMPRESSION: NO RADIOGRAPHIC EVIDENCE OF ACTIVE DISEASE IN THE CHEST. CLINICAL INFORMATION: P.A.T. COMPARISON: None available. FINDINGS: Two views of the chest were obtained. Heart and mediastinum appear normal. The lungs appear clear. Visualized bony thorax and remainder of the chest appears unremarkable. Ordering Provider: Bishop Lopez FINAL REPORT Dictated: 02/16/2024 8:42 am Aayush Graham MD Signed (Electronic Signature): 02/16/2024 8:42 am Signed by: Aayush Graham MD Transcribed by: JAMES Technologist: CC Technical Comments Radiation Dose: Ka,r in mGy = na DAP = na Normal [facility] eGFRon 02-16-2024 eGFR 93 mL/min/1.73 m2 Normal >=59 [facility] Comment on above: Order Comment: Order added by Discern Expert. Performed By: #### 1 [id number] #### [facility] [address] [place] [id number] ISTAT XRay CREOrdered By: Nilay Mg on 02-01-2024 Creatinine [Mass/Vol] 1.1 mg/dL Normal 0.6-1.3 [facility] Comment on above: Result Comment: ER/E [place] physician is notified/shown all ISTAT results. Critical values may be confirmed by laboratory testing if deemed necessary by ER attending doctor. Performed By: #### I SCRE #### [address] ER/ESD physician is notified/shown all ISTAT results.Critical values may be confirmed by laboratory testing ifdeemed necessary by ER attending doctor. ISTAT XRay CREon 02-01-2024 ISTAT GFR > 60.0 Normal [facility] Comment on above: Result Comment: PERF ORMED BY: [place] [address] PATHOLOGIST INSEAMER FRANSISCO BURCH M.D. Performed By: #### I SCRE #### [address] MR prostate wo/w conon 01-31 MR prostate wo/w con [facility] [place] [address] [place] [address] MRI Report Signed Patient: Javi Cason MR#: [id number] : 1955 Acct:[id number] Age/Sex: 68 / M ADM Date: 02/01/24 Loc: Room: Type: [facility] Attending Dr: Niurka Mg PA-C Copies to: Niurka Mg PA-C Ordering Provider: Niurka Mg PA-C Date of Service: 02/01/24 MR/MR prostate wo/w con: R97.20 ELEVATED PSA EXAMINATION: MR prostate wo/w con HISTORY: Elevated PSA level. COMPARISON: NONE TECHNIQUE: Multiparametric imaging of the prostate gland was performed with IV contrast. FINDINGS: Prostate Dimensions: 5.3 x 4.1 x 6.0 cm. Prostate Volume: 68 mL. Peripheral Zone: Heterogenous inT2 signal suggestive of prior prostatitis. No suspicious T2 or ADC map abnormality is identified to suggest prostate malignancy. Central/Transitional Zone: BPH changes. Seminal Vesicles: Unremarkable Neurovascular bundles: Unremarkable. Lymphadenopathy: No evidence of lymphadenopathy. Bladder: No focal lesion. Bowel: Diverticulosis. Peritoneal Cavity: No free fluid. Bones: No suspicious bony lesion. MR/MR prostate wo/w con IMPRESSION: No MRI evidence of clinically significant prostate cancer. Impression dictated by: Melvin Peña Jr., D.OFranky02/01/2024 2:07 PM Dictation Location: [facility] Transcribed By: PWS 02/01/24 140 Dictated By: Melvin Peña Jr, DO 02/01/24 140 Signed By: 02/01/24 140 Normal [facility] No Panel InformationOrdered By: Niurka Mg on 02-01-2024 Bedside Estimated GFR (eGFR) > 60.0 [facility] Ambulatory Visit Summaryon 0 12-22-2023 Ambulatory Visit Summary Ambulatory Visit Summary JAVI CASON :1955 Visit Date:12/22/2023 Ambulatory Visit Instructions Your Diagnosis Elevated PSA ED (erectile dysfunction) Urinary urgency Tests Performed MRI Pelvis (Soft Tissue) w/ + w/o contrast -- Results Pending -- Please visit your patient portal for your results or contact your primary care physician. Your Care Team Attending Physician - NIURKA MG PA-C Primary Care Physician - AASHISH STRINGER CNP This Is Your Medications List Contact prescribing physician if questions or concerns multivitamin (B-Complex with B-12) multivitamin (Multi Vitamins oral tablet) psyllium (Metamucil) Procedures Performed Colonoscopy, History of knee surgery. Discharge Vitals Temperature (Temporal Artery) 36.6 ?C Respiratory Rate 16 Blood Pressure 124/82 Height 176 cm Height 69 in Weight 82 kg Weight 180.4 lb BMI 26.47 What to do next You Need to Schedule the Following Appointments Follow Up with NIURKA MG PA-C, URL When: Comments: f/u pending prostate MRI and select MDX results Where: [address] [place] [address] [id number] Medications What How Much When Instructions Unchanged multivitamin (B-Complex with B-12) Every day Contact prescribing physician if questions or concerns Unchanged multivitamin (Multi Vitamins oral tablet) Every day Contact prescribing physician if questions or concerns Unchanged psyllium (Metamucil) Contact prescribing physician if questions or concerns Allergies Demerol diphenhydrAMINE Problems Ongoing - Any problem that you are currently receiving treatment for. ED (erectile dysfunction) Elevated PSA Urinary urgency Patient Survey You may receive a survey via text or e-mail asking about your office visit. Please share your experience with us by completing your survey. We appreciate your feedback and thank you for choosing us for your care. Education Materials Prostate Cancer Screening Prostate cancer screening is testing that is done to check for the presence of prostate cancer in men. The prostate gland is a walnut-sized gland that is located below the bladder and in front of the rectum in males. The function of the prostate is to add fluid to semen during ejaculation. Prostate cancer is one of the most common types of cancer in men. Who should have prostate cancer screening? Screening recommendations vary based on age and other risk factors, as well as between the professional organizations who make the recommendations. In general, screening is recommended if: ? You are age 50 to 70 and have an average risk for prostate cancer. You should talk with your health care provider about your need for screening and how often screening should be done. Because most prostate cancers are slow growing and will not cause , screening in this age group is generally reserved for men who have a 10- to 15-year life expectancy. ? You are younger than age 50, and you have these risk factors: ? Having a father, brother, or uncle who has been diagnosed with prostate cancer. The risk is higher if your family member's cancer occurred at an early age or if you have multiple family members with prostate cancer at an early age. ? Being a male who is Black or is of Johnny or sub-Saharan descent. In general, screening is not recommended if: ? You are younger than age 40. ? You are between the ages of 40 and 49 and you have no risk factors. ? You are 70 years of age or older. At this age, the risks that screening can cause are greater than the benefits that it may provide. If you are at high risk for prostate cancer, your health care provider may recommend that you have screenings more often or that you start screening at a younger age. How is screening for prostate cancer done? The recommended prostate cancer screening test is a blood test called the prostate-specific antigen (PSA) test. PSA is a protein that is made in the prostate. As you age, your prostate naturally produces more PSA. Abnormally high PSA levels may be caused by: ? Prostate cancer. ? An enlarged prostate that is not caused by cancer (benign prostatic hyperplasia, or BPH). This condition is very common in older men. ? A prostate gland infection (prostatitis) or urinary tract infection. ? Certain medicines such as male hormones (like testosterone) or other medicines that raise testosterone levels. A rectal exam may be done as part of prostate cancer screening to help provide information about the size of your prostate gland. When a rectal exam is performed, it should be done after the PSA level is drawn to avoid any effect on the results. Depending on the PSA results, you may need more tests, such as: ? A physical exam to check the size of your prostate gland, if not done as part of screening. ? Blood and imaging tests. (more content not included)... Normal [facility] Urology Office/Clinic Noteon 12-22-2023 Urology Office/Clinic Note Urology Office/Clinic Note Chief Complaint 3 month follow with PSA HPI Staff 3m PSA f/t following 2wk course of abx & NSAIDs DX: Elevated PSA, ED & Urgency PSA f/t 12/01/23- 5.4 & 10.2% Dysuria: denies Incomplete bladder emptying: denies Hematuria: denies visible blood Frequency: denies Urgency: yes Nocturia: denies Stream: denies hesitancy, has steady strong stream Leaking: denies Post void dripping: denies Wearing pads/ Depends: denies Urge incontinence: denies Stress incontinence: denies Incontinence without Sensory Awareness: denies Abdominal pain: denies Flank pain: denies Sexual complaints: _ History of Present Illness staff HPI reviewed and agree. Review of Systems PHQ Score Initial Depression Screen Score: 0 SCORE no fever, chills, malaise, myalgia. no rash/lesions. no chest pain, palpitations, or SOB. no abdominal pain, nausea, vomiting. no unilateral calf swelling, redness, pain Physical Exam Vitals & Measurements T: 36.6 ?C(Temporal Artery) RR: 16 BP: 124/82 HT: 69 in HT: 176 cm WT: 82 kg WT: 180.4 lb BMI: 26.47 General: nontoxic, NAD Mouth: moist mucosa Lungs: normal respiratory effort Cardio: regular rate, good distal perfusion Abdomen: nondistended, no suprapubic distention or tenderness, no CVA tenderness Neurologic: Grossly normal Skin: No rashes or suspicious lesions NEO: benign. no asymmetry, induration, nodules. Assessment/Plan 1. Elevated PSA (R97.20: Elevated prostate specific antigen [PSA]) PSA 10/01/18 - 2.86 11/13/20 - 4.17 08/31/23 - 6.4 & 11.7% 12/01/23 - 5.4 & 10.2% No family hx pros ca. Hx of breast ca in mother and female ca (they think maybe uterine). PSA has decreased from prior after taking NSAIDs and abx x2 wks. However overall level is elevated and percent free is unfavorable. Educated pt on etiologies of PSA fluctuation. Recommended select MDX to further evaluate risk for prostate cancer and prostate MRI to identify any prostate abnormalities. Discussed if both tests are negative, will continue to monitor PSA closely. If both positive, will proceed with a fusion biopsy. However if only one test is positive/suspicious, I will call pt and we will discuss next steps/decide together based on results. We discussed risks of MRI fusion prostate biopsy approaches including transrectal and transperineal. Also discussed local vs MAC anesthesia and risks/benefits of both. Pt elects to proceed w transperineal under MAC if needed. Risks of the procedure were discussed to include but not be limited to bleeding, pain, infection (higher, including sepsis with transrectal approach), difficulties with urination, injury to the urethra, prostate or bladder or surrounding tissues, injury from positioning on the table, swelling and bruising of the skin, and need for further procedures. -Schedule prostate MRI @ [facility] [place]. Will call pt with results. -Send select MDX today 2. ED (erectile dysfunction) (N52.9: Male erectile dysfunction, unspecified) MIRIAN 5. was previously on Viagra and it worked for a while but stopped working. no longer able to achieve an erection with it. [1] -Readdress after workup for #1 3. Urinary urgency (R39.15: Urgency of urination) IPSS 5 (7-8). Only sx is urgency, attributes this to fluid intake. Not bothersome. Follow-up With When Contact Information NIURKA MG PA-C, [place] [address] [phone] Additional Instructions: f/u pending prostate MRI and select MDX results Patient Education Prostate Cancer Screening Magnetic Resonance Imaging Documentation recorded by the scribrashad Mcadams accurately reflects the services(s) I performed and decisions made by me. Authenticated by Niurka Mg PA-C on 12/22/2023 09:19:25. I, Eliz Mcadams, personally scribed for Niurka Mg PA-C on 12/22/2023 09:09:17. . Problem List/Past Medical History Ongoing ED (erectile dysfunction) Elevated PSA Urinary urgency Historical No qualifying data Procedure/Surgical History Colonoscopy, History of knee surgery. Medications B-Complex with B-12, Oral, Daily Metamucil, Oral Multi Vitamins oral tablet, Oral, Daily Allergies Demerol diphenhydrAMINE Social History Alcohol - Low Risk, 09/22/2023 Tobacco Never (less than 100 in lifetime) Tobacco Use:. Never Smokeless Tobacco Use:., 12/22/2023 Family History Cancer: Mother. Hypertension: Mother and Grandparent. 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, ED; NIURKA MG PA-C 09/22/2023 18:31 EDT Normal [facility] Comment on above: Result Comment: Elec tronically Signed By: NIURKA MG PA-C\.br\Date and Time Signed: 12/22/23 09:19 EDT\.br\Electronically Co-Signed By: Eliz Mcadams\Frankybr\Date and Time Co-Signed: 12/22/23 09:10 EDT Consultation Noteon 09-28-19 Consultation Note [id number] 0#1.00TIFF Normal [facility] Lab Reportson 09-28-2023 Lab Reports [id number]#1.00TIFF [facility] Screenson 09-28-2023 Screens [id number] #1.00TIFF [facility] Ambulatory Visit Summaryon 0 09-22-2023 Ambulatory Visit Summary JAVI CASON :1955 Visit Date:09/22/2023 Ambulatory Visit Instructions Your Diagnosis Elevated PSA Your Care Team Attending Physician - NIURKA MG PA-C Primary Care Physician - AASHISH STRINGER CNP This Is Your Medications List multivitamin (B-Complex with B-12) multivitamin (Multi Vitamins oral tablet) omega-3 polyunsaturated fatty acids (Fish Oil) psyllium (Metamucil) Procedures Performed Colonoscopy, History of knee surgery. What to do next Scheduled Follow-Up Appointments Thursday 8:40 AM EDT With: NIURKA MG PA-C Where: [facility] Patient Educationon 09-22-19 24 Patient Education Oncology Prostate Cancer Screening Prostate cancer screening is testing that is done to check for the presence of prostate cancer in men. The prostate gland is a walnut-sized gland that is located below the bladder and in front of the rectum in males. The function of the prostate is to add fluid to semen during ejaculation. Prostate cancer is one of the most common types of cancer in men. Who should have prostate cancer screening? Screening recommendations vary based on age and other risk factors, as well as between the professional organizations who make the recommendations. In general, screening is recommended if: ? You are age 50 to 70 and have an average risk for prostate cancer. You should talk with your health care provider about your need for screening and how often screening should be done. Because most prostate cancers are slow growing and will not cause , screening in this age group is generally reserved for men who have a 10- to 15-year life expectancy. ? You are younger than age 50, and you have these risk factors: ? Having a father, brother, or uncle who has been diagnosed with prostate cancer. The risk is higher if your family member's cancer occurred at an early age or if you have multiple family members with prostate cancer at an early age. ? Being a male who is Black or is of Johnny or sub-Saharan descent. In general, screening is not recommended if: ? You are younger than age 40. ? You are between the ages of 40 and 49 and you have no risk factors. ? You are 70 years of age or older. At this age, the risks that screening can cause are greater than the benefits that it may provide. If you are at high risk for prostate cancer, your health care provider may recommend that you have screenings more often or that you start screening at a younger age. How is screening for prostate cancer done? The recommended prostate cancer screening test is a blood test called the prostate-specific antigen (PSA) test. PSA is a protein that is made in the prostate. As you age, your prostate naturally produces more PSA. Abnormally high PSA levels may be caused by: ? Prostate cancer. ? An enlarged prostate that is not caused by cancer (benign prostatic hyperplasia, or BPH). This condition is very common in older men. ? A prostate gland infection (prostatitis) or urinary tract infection. ? Certain medicines such as male hormones (like testosterone) or other medicines that raise testosterone levels. A rectal exam may be done as part of prostate cancer screening to help provide information about the size of your prostate gland. When a rectal exam is performed, it should be done after the PSA level is drawn to avoid any effect on the results. Depending on the PSA results, you may need more tests, such as: ? A physical exam to check the size of your prostate gland, if not done as part of screening. ? Blood and imaging tests. ? A procedure to remove tissue samples from your prostate gland for testing (biopsy). This is the only way to know for certain if you have prostate cancer. What are the benefits of prostate cancer screening? ? Screening can help to identify cancer at an early stage, before symptoms start and when the cancer can be treated more easily. ? There is a small chance that screening may lower your risk of dying from prostate cancer. The chance is small because prostate cancer is a slow-growing cancer, and most men with prostate cancer from a different cause. What are the risks of prostate cancer screening? The main risk of prostate cancer screening is diagnosing and treating prostate cancer that would never have caused any symptoms or problems. This is called overdiagnosisand overtreatment. PSA screening cannot tell you if your PSA is high due to cancer or a different cause. A prostate biopsy is the only procedure to diagnose prostate cancer. Even the results of a biopsy may not tell you if your cancer needs to be treated. Slow-growing prostate cancer may not need any treatment other than monitoring, so diagnosing and treating it may cause unnecessary stress or other side effects. Questions to ask your health care provider ? When should I start prostate cancer screening? ? What is my risk for prostate cancer? ? How often do I need screening? ? What type of screening tests do I need? ? How do I get my test results? ? What do my results mean? ? Do I need treatment? Where to find more information ? The [place] [employer]: www.cancer.org ? [place] [employer]: www.auanet.org Contact a health care provider if: ? You have difficulty urinating. ? You have pain when you urinate or ejaculate. ? You have blood in your urine or semen. ? You have pain in your back or in the area of your prostate. Summary ? Prostate cancer is a common type of cancer in men. The prostate gland is located below the bladder and in front of the rectum. This gland adds flu (more content not included)... Normal [facility] Urology Office/Clinic Noteon 09-22-2023 Urology Office/Clinic Note HPI Staff New patient referred by Aashish Stringer, CASE OPERATOR @ [facility] for elevated PSA and urgency. Pt. states he had ED. Pt. states he is not able to get an erection at all. Pt. states he has tried Viagra and has stopped working. PSA 6.4 PSA free 11.7% urine culture negative done on 08/31/2023 Dysuria: no Incomplete bladder emptying: no Hematuria: no Frequency: every couple hours, Pt. states he drinks a lot of water Urgency: no Nocturia: 1 at the most Stream: good stream Post void dripping: no Wearing pads/ Depends: no Urge incontinence: no Stress incontinence: no Incontinence without Sensory Awareness: no Abdominal pain: no Flank pain: no Review of Systems no fever, chills, malaise, myalgia. no rash/lesions. no chest pain, palpitations, or SOB. no abdominal pain, nausea, vomiting. 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 Elevated PSA, (R97.20: Elevated prostate specific antigen [PSA])Elevated PSA no family hx pros ca. mom hx breast ca and female ca (they think maybe uterine). PSA 6.4, 11.7% free on 08/31/23 no previous available for comparison. pt thinks he had one back in at either [facility] or [facility]. will try to find. no recent worsening LUTS. no prostatitis sx. I discussed the pros and cons of PSA with the patient today. The various causes of PSA elevation were outlined, including prostate cancer, prostate enlargement, infection of the prostate, inflammation without infection, as well as prostate manipulation. The options regarding this PSA elevation, including prostate biopsy versus close monitoring, versus obtaining an MRI of the prostate were discussed. The patient has decided upon close monitoring He will repeat PSA free & total 3 mos from previous. He will complete 2 week course of abx and NSAIDs prior to this draw to account for any subclinical prostatitis. At next visit if PSA is still outside normal range we will collect urine for [facility] and we will schedule prostate MRI. Pt/ like this plan. Ordered: Complex E&M Add on G2211 E&M of New Patient Moderate 45-59 Min 19489 PSA Free & Total 2. ED (erectile dysfunction) (N52.9: Male erectile dysfunction, unspecified) was previously on Viagra and it worked for a while but stopped working. no longer able to achieve an erection with it. would like to discuss alternative tx options. will address once we figure out #1. Ordered: Complex E&M Add on G2211 E&M of New Patient Moderate 45-59 Min 96414 3. Urinary urgency (R39.15: Urgency of urination) IPSS 7-8 but sx only frequency (2-3, noct x1) and urgency (4). says he drinks a lot of fluids throughout the day. denies incontinence. sx not bothersome. Ordered: Complex E&M Add on G2211 E&M of New Patient Moderate 45-59 Min 43638 Orders: naproxen, 500 mg = 1 tab(s), Oral, BID, with food, X 14 day(s), # 28 tab(s), Refills(s) 0, Pharmacy: [id number] sulfamethoxazole-tri methoprim, 1 tab(s), Oral, BID for 14 day(s), 28 tab(s), Refill(s) 0, [id number] Follow-up With When Contact Information NIURKA MG PA-C, URL Within 3 months [address] [place] [address] Additional Instructions: Patient Education Prostate Cancer Screening Problem List/Past Medical History Ongoing Urinary urgency Historical No qualifying data Procedure/Surgical History Colonoscopy, History of knee surgery. Medications B-Complex with B-12, Oral, Daily Bactrim D.S. 800 mg-160 mg Tab, 1 tab(s), Oral, BID Fish Oil, Oral Metamucil, Oral Multi Vitamins oral tablet, Oral, Daily Naprosyn 500 mg Tab, 500 mg= 1 tab(s), Oral, BID Allergies Demerol diphenhydrAMINE Social History Alcohol - Low Risk, 09/22/2023 Tobacco Never (less than 100 in lifetime) Tobacco Use:., 09/22/2023 Family History Cancer: Mother. Hypertension: Mother and Grandparent. Normal [facility] Comment on above: Result Comment: Elec tronically Signed By: NIURKA MG PA-C\.br\Date and Time Signed: 09/22/23 18:32 EDT Office Visit (Cardiology)on 01-09-2022 Follow-up visit Diagnoses/Problems Assessed CHF (NYHA class III, ACC/AHA stage C) (428.0) (I50.9) Chronic systolic heart failure (428.22) (I50.22) LBBB (left bundle branch block) (426.3) (I44.7) Hypertension (401.9) (I10) PAC (premature atrial contraction) (427.61) (I49.1) Overweight with body mass index (BMI) of 26 to 26.9 in adult (278.02,V85.22) (E66.3,Z68.26) Never a smoker Orders CHF (NYHA class III, ACC/AHA stage C) Start: Jardiance 10 MG Oral Tablet; TAKE 1 TABLET BY MOUTH ONCE DAILY Overweight with body mass index (BMI) of 26 to 26.9 in adult Healthy Weight Tips; Status:Complete - Retrospective Authorization; Done: [id number] SocHx: Never a smoker Tobacco Use Screening; Status:Complete; Done: [id number] Patient Instructions Please bring all medicines, vitamins, and herbal supplements with you when you come to the office. Prescriptions will not be filled unless you are compliant with your follow up appointments or have a follow up appointment scheduled as per instruction of your physician. Refills should be requested at the time of your visit. Follow up in 9 months Chief Complaint JAVI CASON is being seen for a 9 month follow-up of. History of Present Illness Patient returns in follow-up of problems as noted. He is doing well. He denies any syncope near syncope palpitation or other arrhythmia symptomatology. Likewise she has no orthopnea PND or dyspnea with exertion. He is doing well on Entresto and spironolactone therapy. As before he does not wish to take beta-blockers because of side effects but he is willing to entertain the initiation of SGLT2 inhibitor therapy because of this a prescription is provided. The rationale for this medicine and its potential to improve his chronic systolic heart failure from functional class III to functional class II or even functional class I was emphasized and because of all the above he is willing to give it a try. Blood pressure was high on arrival but better after recheck and because of all the above we suggest continued therapy with the addition of Jardiance and otherwise follow-up in about 9 months. He was encouraged to call if any symptoms arise. Surgical History Problems History of Cardiac catheterization History of Carpal tunnel surgery History of Complete colonoscopy History of Knee replacement History of Rotator cuff repair Current Meds Medication NameInstruction Entresto 49-51 MG Oral Tablettake 1 tablet by mouth twice a day Flexeril 10 MG TABSTAKE 1 TABLET DAILY NEEDED. Multi-Vitamin Oral TabletTAKE 1 TABLET DAILY. Spironolactone 25 MG Oral TabletTAKE 1 TABLET DAILY. Vitamin B Complex Oral TabletTAKE 1 TABLET DAILY. Allergies Medication Demerol TABS Vomiting; Recorded By: Hoda Ireland; 07/24/2021 3:11:42 PM meperidine Allergy; Vomiting; Recorded By: Jessica Castro; 05/20/2021 8:34:24 AM Benadryl Recorded By: Hoda Ireland; 07/24/2021 3:11:42 PM Coreg TABS Adverse Reaction; Recorded By: Alicia Schwarz; 01/09/2022 11:49:11 AM diphenhydrAMINE Allergy; Recorded By: Jessica Castro; 05/20/2021 8:34:24 AM Additional Reactions - Intolerance Social History Problems Alcohol use (V49.89) (Z72.89) Socially Caffeine use (V49.89) (Z78.9) iced tea and soda daily Never a smoker No illicit drug use Review of Systems Constitutional: not feeling tired. Eyes: no eyesight problems. ENT: no hearing loss and no nosebleeds. Cardiovascular: no intermittent leg claudication and as noted in HPI. Respiratory: no chronic cough and no shortness of breath. Gastrointestinal: no change in bowel habits and no blood in stools. Genitourinary: no urinary frequency and no hematuria. Skin: no skin rashes. Neurological: no seizures and no frequent falls. Psychiatric: no depression and not suicidal. All other systems have been reviewed and are negative for complaint. Vitals Vital Signs Recorded: 09Jan2022 11:52AMRecorded: 09Jan2022 11:33AM Heart Rate72, R Ismihs36, R Radial Xttodmxa617, RUE, Hdaifho900, RUE, Sitting Dshrljfkl37, RUE, Jdswdiw25, RUE, Sitting Height5 ft 9 in5 ft 9 in Qlzqzz094 lb 179 lb BMI Kczddwcrmn24.43 kg/m226.43 kg/m2 BSA Calculated1.971.97 Tobacco Useb) No PHQ-2 #1. Over the last 2 weeks have you felt down, depressed or hopeless? (If yes, answer PHQ-9 below)No PHQ-2 #2. Over the last 2 weeks have you felt little interest or pleasure in doing things? (If yes, answer PHQ-9 below)No Falls Screening (Age 18+)a) No falls within the last year Physical Exam Constitutional: alert and in no acute distress. Eyes: no erythema, swelling or discharge from the eye . Neck: neck is supple, symmetric, trachea midline, no masses and no thyromegaly . Pulmonary: no increased work of breathing or signs of respiratory distress and lungs clear to auscultation. Cardiovascular: carotid pulses 2+ bilaterally with no bruit , JVP was normal, no thrills , regular rhythm, normal S1 and S2, no murmurs , pedal pulses 2+ bilater (more content not included)... Normal [employer] Tobacco Screening.on 022 Adult depression screening assessment No [facility] Heart-Exploretrip 600 DO Work Phone: Fall risk assessment a) No falls within the last year [facility] PlayHaven 600 DO Work Phone: Tobacco use status [facility]PHS b) No [facility] JigluHarman 600 DO Work Phone: CBC AUTO DIFFon 01-02-2022 BASO # 0.0 103/ul Normal 0.0-0.1 [facility] Comment on above: Performed By: #### C BC #### [facility] [address] [place] [address] Dr. Juan J Rivera Basophils/100 WBC (Bld) 0.5 % Normal 0.2-2.0 [facility] Comment on above: Performed By: #### C BC #### [facility] [address] [place] [address] Dr. Juan J Rivera EO # 0.1 103/ul Normal 0.0-0.7 [facility] Comment on above: Performed By: #### C BC #### [facility] [address] [place] [address] Dr. Juan J Rivera Eosinophils/100 WBC (Bld) 1.0 % Normal 0.9-7.0 [facility] Comment on above: Performed By: #### C BC #### [facility] [address] [place] [address] Dr. Juan J Rivera Erythrocyte distribution width (RBC) [Ratio] 13.4 % Normal 11.0-15.0 [facility] Comment on above: Performed By: #### C BC #### [facility] [address] [place] [address] Dr. Juan J Rivera Hematocrit (Bld) [Volume fraction] 44.3 % Normal 42.0-54.0 [facility] Comment on above: Performed By: #### C BC #### [facility] [address] [place] [address] Dr. Juan J Rivera Hemoglobin (Bld) [Mass/Vol] 15.0 g/dL Normal 14.0-18.0 [facility] Comment on above: Performed By: #### C BC #### [facility] [address] [place] [address] Dr. Juan J Rivera IG # 0.02 10e3/ul Normal 0.00-0.03 [facility] Comment on above: Performed By: #### C BC #### [facility] [address] [place] [address] Dr. Juan J Rivera IG % 0.2 % Normal 0.0-0.5 [facility] Comment on above: Performed By: #### C BC #### [facility] [address] [place] [address] Dr. Juan J Rivera LYMPH # 1.7 103/ul Normal 1.2-3.8 [facility] Comment on above: Performed By: #### C BC #### [facility] [address] [place] [address] Dr. Juan J Rivera Lymphocytes/100 WBC (Bld) 19.0 % Critically low 20.5-60.0 [facility] Comment on above: Performed By: #### C BC #### [facility] [address] [place] [address] Dr. Juan J Rivera MANUAL DIFF REQ NO Normal [facility] Comment on above: Performed By: #### C BC #### [facility] [address] [place] [address] Dr. Juan J Rivera MCH (RBC) [Entitic mass] 31.1 pg Normal 25.9-34.0 [facility] Comment on above: Performed By: #### C BC #### [facility] [address] [place] [address] Dr. Juan J Rivera MCHC (RBC) [Mass/Vol] 33.9 g/dL Normal 29.9-35.2 [facility] Comment on above: Performed By: #### C BC #### [facility] [address] [place] [address] Dr. Juan J Rivera MCV (RBC) [Entitic vol] 91.7 fL Normal 80.0-94.0 [facility] Comment on above: Performed By: #### C BC #### [facility] [address] [place] [address] Dr. Juan J Rivera MONO # 0.8 103/ul Normal 0.3-0.8 [facility] Comment on above: Performed By: #### C BC #### [facility] [address] [place] [address] Dr. Juan J Rivera Monocytes/100 WBC (Bld) 8.6 % Normal 1.7-12.0 [facility] Comment on above: Performed By: #### C BC #### [facility] [address] [place] [address] Dr. Juan J Rivera NEUT # 6.2 103/ul Normal 1.4-6.5 [facility] Comment on above: Performed By: #### C BC #### [facility] [address] [place] [address] Dr. Juan J Rivera Neutrophils/100 WBC (Bld) 70.7 % Normal 43.0-75.0 [facility] Comment on above: Performed By: #### C BC #### [facility] [address] [place] [address] Dr. Juan J Rivera Platelet mean volume (Bld) [Entitic vol] 9.3 fL Critically low 9.5-13.5 [facility] Comment on above: Performed By: #### C BC #### [facility] [address] [place] [address] Dr. Juan J Rivera PLT 268 103/ul Normal 150-450 [facility] Comment on above: Performed By: #### C BC #### [facility] [address] [place] [address] Dr. Juan J Rivera RBC 4.83 106/ul Normal 4.70-6.10 [facility] Comment on above: Performed By: #### C BC #### [facility] [address] [place] [address] Dr. Juan J Rivera WBC 8.8 103/ul Normal 4.0-11.0 [facility] Comment on above: Performed By: #### C BC #### [facility] [address] [place] [address] Dr. Juan J Rivera Covid-19 PCR ([facility])on 12-07 SARS-CoV-2 (COVID-19) RNA APOLINAR+probe Ql (Unsp spec) Not detected Normal NOT DETECTED [facility] Comment on above: Result Comment: This test is not yet approved or cleared by the [place] FDA. When there are no FDA-approved or cleared tests available, and other criteria are met, FDA can make tests available under an emergency access mechanism called an Emergency Use Authorization (EUA). The EUA for this test is supported by the [place] of Health and Human Service's (HHS's) declaration that circumstances exist to justify the emergency use of in vitro diagnostics for the detection and/or diagnosis of the virus that causes COVID-19. This EUA will remain in effect (meaning this test can be used) for the duration of the COVID-19 declaration justifying emergency of IVDs, unless it is terminated or revoked by FDA (after which the test may no longer be used). When diagnostic testing is negative, the possibility of a false negative should be considered in the context of a patient's recent exposures and the presence of clinical signs and symptoms consistent with SARS-CoV-2. Performed By: #### B MP #### [facility] [address] [place] [address] Dr. Juan J Rivera PROF CHEM 8 (BAS METB)on Anion gap [Moles/Vol] 11.4 mmol/L Normal Th [facility] Comment on above: Performed By: #### B MP #### [facility] [address] [place] [address] Dr. Juan J Rivera Calcium [Mass/Vol] 9.2 mg/dL Normal 8.5-10.1 [facility] Comment on above: Performed By: #### B MP #### [facility] [address] [address] [address] Juan J Rivera Chloride [Moles/Vol] 103 mmol/L Normal 98-107 [facility] Comment on above: Performed By: #### B MP #### [facility] [address] [address] [address] Juan J Rivera CO2 [Moles/Vol] 29.9 mmol/L Normal 21.0-32.0 [facility] Comment on above: Performed By: #### B MP #### [facility] [address] [address] [address] Juan J Rivera Creatinine [Mass/Vol] 1.14 mg/dL Normal 0.70-1.30 [facility] Comment on above: Performed By: #### B MP #### [facility] [address] [address] [address] Juan J Rivera EGFR-AF EQUATORIAL GUINEAN >60 Normal >=60 [facility] Comment on above: Performed By: #### B MP #### [facility] [address] [address] [address] Juan J Rivera EGFR-NON AF EQUATORIAL GUINEAN >60 Normal >=60 [facility] Comment on above: Performed By: #### B MP #### [facility] [address] [address] [address] Juan J Rivera Glucose [Mass/Vol] 115 mg/dL Critically high 74-[address] [facility] Comment on above: Performed By: #### B MP #### [facility] [address] [address] [address] Juan J Rivera Potassium [Moles/Vol] 4.3 mmol/L Normal 3.5-5.1 [facility] Comment on above: Performed By: #### B MP #### [facility] [address] [address] [address] Juan J Rivera Sodium [Moles/Vol] 140 mmol/L Normal 136-145 [facility] Comment on above: Performed By: #### B MP #### [facility] [address] [place] [address] Dr. Juan J Rivera Urea nitrogen [Mass/Vol] 14.0 mg/dL Normal 7.0-18.0 [facility] Comment on above: Performed By: #### B MP #### [facility] [address] [place] [address] Dr. Juan J Rivera Urea nitrogen/Creatinine [Mass ratio] 12.3 mg/mg Normal [facility] Comment on above: Performed By: #### B MP #### [facility] [address] [place] [address] Dr. Juan J Rivera PROTIMEon 01-02-2022 INR Coag (PPP) [Relative time] 1.06 {INR} Normal [facility] Comment on above: Performed By: #### P TT, PT #### [facility] [address] [place] [address] Dr. Juan J Rivera INR GUIDELINES SEE BELOW Normal [facility] Comment on above: Result Comment: JED RED INR: 2.0 - 3.0 CONDITIONS NOT LISTED BELOW 2.5 - 3.5 FOR PROSTHETIC HEART VALVE REPLACEMENT 2.5 - 3.5 RECURRENT THROMBOSIS Performed By: #### P TT, PT #### [facility] [address] [place] [address] Dr. Juan J Rivera PT Coag (PPP) [Time] 11.4 s Normal 9.0-11.6 [facility] Comment on above: Performed By: #### P TT, PT #### [facility] [address] [place] [address] Dr. Juan J Rivera PTTon 01-02-2022 aPTT Coag (Bld) [Time] 27.9 s Normal 22.3-36.2 Th [facility] Comment on above: Performed By: #### P TT, PT #### [facility] [address] [place] [address] Dr. Juan J Rivera BNPon 08-23-2021 Natriuretic peptide B (Bld) [Mass/Vol] 288.0 pg/mL Normal <=900.0 [facility] Comment on above: Performed By: #### B MP #### [facility] [address] [place] [address] Dr. Juan J Rivera CBC AUTO DIFFon 08-23-2021 BASO # 0.0 103/ul Normal 0.0-0.1 [facility] Comment on above: Performed By: #### C BC #### [facility] [address] [place] [address] Dr. Juan J Rivera Basophils/100 WBC (Bld) 0.4 % Normal 0.2-2.0 [facility] Comment on above: Performed By: #### C BC #### [facility] [address] [place] [address] Dr. Juan J Rivera EO # 0.1 103/ul Normal 0.0-0.7 [facility] Comment on above: Performed By: #### C BC #### [facility] [address] [place] [address] Dr. Juan J Rivera Eosinophils/100 WBC (Bld) 1.7 % Normal 0.9-7.0 [facility] Comment on above: Performed By: #### C BC #### [facility] [address] [place] [address] Dr. Juan J Rivera Erythrocyte distribution width (RBC) [Ratio] 12.8 % Normal 11.0-15.0 [facility] Comment on above: Performed By: #### C BC #### [facility] [address] [place] [address] Dr. Juan J Rivera Hematocrit (Bld) [Volume fraction] 46.9 % Normal 42.0-54.0 [facility] Comment on above: Performed By: #### C BC #### [facility] [address] [place] [address] Dr. Juan J Rivera Hemoglobin (Bld) [Mass/Vol] 15.7 g/dL Normal 14.0-18.0 [facility] Comment on above: Performed By: #### C BC #### [facility] [address] [place] [address] Dr. Juan J Rivera IG # 0.02 10e3/ul Normal 0.00-0.03 [facility] Comment on above: Performed By: #### C BC #### [facility] [address] [place] [address] Dr. Juan J Rivera IG % 0.3 % Normal 0.0-0.5 [facility] Comment on above: Performed By: #### C BC #### [facility] [address] [place] [address] Dr. Juan J Rivera LYMPH # 1.7 103/ul Normal 1.2-3.8 [facility] Comment on above: Performed By: #### C BC #### [facility] [address] [place] [address] Dr. Juan J Rivera Lymphocytes/100 WBC (Bld) 23.0 % Normal 20.5-60.0 [facility] Comment on above: Performed By: #### C BC #### [facility] [address] [place] [address] Dr. Juan J Rivera MANUAL DIFF REQ NO Normal [facility] Comment on above: Performed By: #### C BC #### [facility] [address] [place] [address] Dr. Juan J Rivera MCH (RBC) [Entitic mass] 32.0 pg Normal 25.9-34.0 [facility] Comment on above: Performed By: #### C BC #### [facility] [address] [place] [address] Dr. Juan J Rivera MCHC (RBC) [Mass/Vol] 33.5 g/dL Normal 29.9-35.2 [facility] Comment on above: Performed By: #### C BC #### [facility] [address] [place] [address] Dr. Juan J Rivera MCV (RBC) [Entitic vol] 95.7 fL Critically high 80.0-94.0 [facility] Comment on above: Performed By: #### C BC #### [facility] [address] [place] [address] Dr. Juan J Rivera MONO # 0.7 103/ul Normal 0.3-0.8 [facility] Comment on above: Performed By: #### C BC #### [facility] [address] [place], [place] [id number] Dr. Juan J Rivera Monocytes/100 WBC (Bld) 9.4 % Normal 1.7-12.0 [facility] Comment on above: Performed By: #### C BC #### [facility] [address] [place] [address] Dr. Juan J Rivera NEUT # 4.7 103/ul Normal 1.4-6.5 [facility] Comment on above: Performed By: #### C BC #### [facility] [address] [place] [address] Dr. Juan J Rivera Neutrophils/100 WBC (Bld) 65.2 % Normal 43.0-75.0 [facility] Comment on above: Performed By: #### C BC #### [facility] [address] [place] [address] Dr. Juan J Rivera Platelet mean volume (Bld) [Entitic vol] 9.2 fL Critically low 9.5-13.5 [facility] Comment on above: Performed By: #### C BC #### [facility] [address] [place] [address] Dr. Juan J Rivera PLT 271 103/ul Normal 150-450 [facility] Comment on above: Performed By: #### C BC #### [facility] [address] [place] [address] Dr. Juan J Rivera RBC 4.90 106/ul Normal 4.70-6.10 [facility] Comment on above: Performed By: #### C BC #### [facility] [address] [place] [address] Dr. Juan J Rivera WBC 7.2 103/ul Normal 4.0-11.0 [facility] Comment on above: Performed By: #### C BC #### [facility] [address] [place] [address] Dr. Juan J Rivera [facility] SARS-CoV-2 (COVID-19) RNA APOLINAR+probe Ql (Unsp spec) Not detected Normal NOT DETECTED [facility] Comment on above: Result Comment: This test is not yet approved or cleared by the [place] FDA. When there are no FDA-approved or cleared tests available, and other criteria are met, FDA can make tests available under an emergency access mechanism called an Emergency Use Authorization (EUA). The EUA for this test is supported by the [place] of Health and Human Service's (HHS's) declaration that circumstances exist to justify the emergency use of in vitro diagnostics for the detection and/or diagnosis of the virus that causes COVID-19. This EUA will remain in effect (meaning this test can be used) for the duration of the COVID-19 declaration justifying emergency of IVDs, unless it is terminated or revoked by FDA (after which the test may no longer be used). When diagnostic testing is negative, the possibility of a false negative should be considered in the context of a patient's recent exposures and the presence of clinical signs and symptoms consistent with SARS-CoV-2. Performed By: #### C VDTB #### [facility] [address] [place] [address] Dr. Juan J Rivera PROF CHEM 8 (BAS METB)on Anion gap [Moles/Vol] 9.5 mmol/L Normal [facility] Comment on above: Performed By: #### B MP #### [facility] [address] [place] [address] Dr. Juan J Rivera Calcium [Mass/Vol] 8.9 mg/dL Normal 8.5-10.1 [facility] Comment on above: Performed By: #### B MP #### [facility] [address] [place] [address] Dr. Juan J Rivera Chloride [Moles/Vol] 103 mmol/L Normal 98-107 [facility] Comment on above: Performed By: #### B MP #### [facility] [address] [place] [address] Dr. Juan J Rivera CO2 [Moles/Vol] 29.7 mmol/L Normal 22.0-30.0 [facility] Comment on above: Performed By: #### B MP #### [facility] [address] [place] [address] Dr. Juan J Rivera Creatinine [Mass/Vol] 1.00 mg/dL Normal 0.66-1.25 [facility] Comment on above: Performed By: #### B MP #### [facility] [address] [address] [address] Juan J Rivera EGFR-AF EQUATORIAL GUINEAN >60 Normal >=60 [facility] Comment on above: Performed By: #### B MP #### [facility] [address] [address] [address] Juan J Rivera EGFR-NON AF EQUATORIAL GUINEAN >60 Normal >=60 [facility] Comment on above: Performed By: #### B MP #### [facility] [address] [address] [address] Juan J Rivera Glucose [Mass/Vol] 121 mg/dL Critically high 74-106 T [facility] Comment on above: Performed By: #### B MP #### [facility] [address] [place] [address] Dr. Juan J Rivera Potassium [Moles/Vol] 4.2 mmol/L Normal 3.4-5.0 [facility] Comment on above: Performed By: #### B MP #### [facility] [address] [address] [address] Juan J Rivera Sodium [Moles/Vol] 138 mmol/L Normal 137-145 [facility] Comment on above: Performed By: #### B MP #### [facility] [address] [place] [address] Dr. Juan J Rivera Urea nitrogen [Mass/Vol] 15.0 mg/dL Normal 7.0-18.0 [facility] Comment on above: Performed By: #### B MP #### [facility] [address] [place] [address] Dr. Juan J Rivera Urea nitrogen/Creatinine [Mass ratio] 15.0 mg/mg Normal [facility] Comment on above: Performed By: #### B MP #### [facility] [address] [address] [address] Juan J Rivera PROTIMEon 08-23-2021 INR Coag (PPP) [Relative time] 1.06 {INR} Normal [facility] Comment on above: Performed By: #### P TT, PT #### [facility] [address] [place] [address] Dr. Juan J Rivera INR GUIDELINES SEE BELOW Normal [facility] Comment on above: Result Comment: JED RED INR: 2.0 - 3.0 CONDITIONS NOT LISTED BELOW 2.5 - 3.5 FOR PROSTHETIC HEART VALVE REPLACEMENT 2.5 - 3.5 RECURRENT THROMBOSIS Performed By: #### P TT, PT #### [facility] [address] [place] [address] Dr. Juan J Rivera PT Coag (PPP) [Time] 11.4 s Normal 9.0-11.6 [facility] Comment on above: Performed By: #### P TT, PT #### [facility] [address] [place] [address] Dr. Juan J Rivera PTTon 08-23-2021 aPTT Coag (Bld) [Time] 29.1 s Normal 22.3-36.2 [facility] Comment on above: Performed By: #### P TT, PT #### [facility] [address] [place] [address] Dr. Juan J Rivera XR HAND GUSTABO MIN 3Von 08-20-2 022 XR HAND GUSTABO MIN 3V EXAMINATION: XR HAND GUSTABO MIN 3V HISTORY: Pain in right hand COMPARISON: No relevant comparison available. FINDINGS: RIGHT FINDINGS: BONES: No acute fracture or dislocation. Minimal degenerative changes with joint space narrowing and marginal osteophyte formation. Contour deformity of the fifth metacarpal consistent with a remote healed fracture SOFT TISSUES: Negative. No visible soft tissue swelling. OTHER: Negative. LEFT FINDINGS: BONES: No acute fracture or dislocation. Minimal to mild degenerative changes with joint space narrowing and marginal osteophyte formation most significant along the third metacarpal phalangeal joint SOFT TISSUES: Negative. No visible soft tissue swelling. OTHER: Negative. IMPRESSION: RIGHT CONCLUSION: Minimal degenerative changes LEFT CONCLUSION: Minimal to mild degenerative changes most significant at the third metacarpal phalangeal joint Electronically authenticated by: EMILY CAMARILLO Date: 2021-08-20 16:22 Normal [facility] Office Visit (Cardiology)on 05-21-2021 Follow-up visit Diagnoses/Problems Assessed Hypertension (401.9) (I10) LBBB (left bundle branch block) (426.3) (I44.7) Chronic systolic heart failure (428.22) (I50.22) CHF (NYHA class III, ACC/AHA stage C) (428.0) (I50.9) Overweight with body mass index (BMI) of 26 to 26.9 in adult (278.02,V85.22) (E66.3,Z68.26) Orders Chest pressure, CHF (NYHA class III, ACC/AHA stage C), Chronic systolic heart failure Start: Spironolactone 25 MG Oral Tablet; TAKE 1 TABLET DAILY Brain Natriuretic Peptide BNP; Status:Active; Requested for:21Jun2021; CHF (NYHA class III, ACC/AHA stage C), Chronic systolic heart failure Basic Metabolic Panel; Status:Active; Requested for:21Jun2021; Overweight with body mass index (BMI) of 26 to 26.9 in adult Healthy Weight Tips; Status:Complete; Done: [id number] Follow up in 3-4 months Patient Instructions By signing my name below, I, Ger Curry LPN ,Scribe, attest that this documentation has been prepared under the direction and in the presence of Dr. Liam Shi MD. All medical record entries made by the Scribe were at my direction and personally dictated by me. I have reviewed the chart and agree that the record accurately reflects my personal performance of the history, physical exam, discussion and plan. Please bring all medicines, vitamins, and herbal supplements with you when you come to the office. Prescriptions will not be filled unless you are compliant with your follow up appointments or have a follow up appointment scheduled as per instruction of your physician. Refills should be requested at the time of your visit. Chief Complaint JAVI CASON is being seen for Echo results. History of Present Illness Patient returns in follow-up of problems as noted. In the interim he has had no angina CHF arrhythmia or neurologic symptomatology. Repeat assessment of ejection fraction demonstrates is now 38%. This precludes the need for ICD implantation. We know, though, he is on monotherapy. We discussed beta-juancho therapy but he is insistent that he was intolerant. We did try 2 different beta-blockers and they were both stopped the same side effect and because of this is possible that his complaints may be valid. I suggested to him other agents such as spironolactone and/or SGLT 1 inhibitor should be considered and are used. He is not very happy about this because he wishes to take little or no medication. Advised him to try to improve his cardiomyopathy, prevent heart failure, and prevent . We also try to improve him as much as possible to preclude the need for defibrillator implantation and this was explained to him in detail. He ultimately agrees to the addition of spironolactone and in the future we will try either to resume carvedilol again and or possibly an SGLT 1 inhibitor. He was educated regarding most importantly signs and symptoms of arrhythmia to watch for and encouraged to seek emergency care if they arise or occur. The merits of a modest diet and weight loss were also reviewed. Surgical History Problems History of Cardiac catheterization History of Complete colonoscopy History of Knee replacement History of Rotator cuff repair Current Meds Medication NameInstruction Entresto 49-51 MG Oral TabletTAKE 1 TABLET BY MOUTH TWICE A DAY Flexeril 10 MG TABSTAKE 1 TABLET DAILY NEEDED. Multi-Vitamin Oral TabletTAKE 1 TABLET DAILY. Oxaprozin 600 MG Oral TabletTake 1 tablet twice daily as needed Vitamin B Complex Oral TabletTAKE 1 TABLET DAILY. Allergies Medication meperidine Allergy; Vomiting; Recorded By: Jessica Castro; 05/20/2021 8:34:24 AM diphenhydrAMINE Allergy; Recorded By: Jessica Castro; 05/20/2021 8:34:24 AM Additional Reactions - Intolerance Social History Problems Alcohol use (V49.89) (Z72.89) Socially Caffeine use (V49.89) (Z78.9) iced tea and soda daily Never a smoker No illicit drug use Vitals Vital Signs Recorded: [id number] 09:04AM Heart Rate76, R Radial Tafuvmtp287, LUE, Sitting Jvbyxrckm79, LUE, Sitting Height5 ft 9 in Ypvcda755 lb BMI Jrdudackaf36.43 kg/m2 BSA Calculated1.97 Tobacco Useb) No Fall Screeninga) No falls within the last year Signatures Electronically signed by : Liam Shi MD; May 22 2021 5:58PM EST (Author) Normal [facility] Tobacco Screening.on Fall risk assessment a) No falls within the last year [facility] y 250 DO Work Phone: Tobacco use status [facility] b) No -[facility] [facility] 250 DO Work Phone: [facility] MUGA SCAN INJECTIONon [facility] MUGA SCAN INJECTION Patient Name: JAVI CASON STUDY: MUGA SCAN INJECTION; MUGA (GATED CARDIAC BLOOD POOL); 05/09/2021 3:13 pm; 05/09/2021 3:16 pm Performing facility: [facility], [address] [place] [address], [address], [place] [address] Patient name: JAVI CASON Gender: M Age: 65 y/o Height: 69 ; Weight: 178 lbs; BMI: INDICATION: EF less than 40, sob, chf I50.22: Chronic systolic heart failure. HISTORY: ABN EKG, HTN,, LBBB, COMPARISON: ECHO 11/26 EF=20-25%, CATH 12/26 EF=20%. ACCESSION NUMBER(S): [id number]; [id number] ORDERING CLINICIAN: LIAM SHI TECHNIQUE: The patient's red blood cells were labeled with 26.8 mCi of Technetium-99m using in-vivo technique with PYP. Imaging was performed at rest by planar technique in multiple views FINDINGS: The right ventricle was normal. The left ventricle was abnormal in size. Left ventricle appears mildly dilated Regional wall motion was consistent with global LV hypokinesis. Global resting LVEF was abnormal-30 at %. IMPRESSION: Normal resting right ventricular function. Abnormalresting left ventricular function. Left ventricular ejection fraction is 38%. No previous study available for comparison Electronically signed by: TERESITA SOLIS MD Normal [facility] No Panel Informationon 05-09 [facility] Work Phone: Vital Signs Date Time Vital Sign Value Performing Clinician Facility 02-16-2024 07:51-0400 Heart rate 88 /min Juliotalia OROZCO [facility] 02-16-2024 07:51-0400 SaO2% (BldA) [Mass fraction] 99 % Julio OROZCO [facility] 02-16-2024 07:51-0400 Diastolic blood pressure 97 mm[Hg] Julio OROZCO [facility] 02-16-2024 07:51-0400 Mean blood pressure 121 mm[Hg] Julio OROZCO [facility] 02-16-2024 07:51-0400 Systolic blood pressure 170 mm[Hg] Juilo OROZCO [facility] 02-01-2024 09:27-0400 Body height 175.26 cm Value [employer]st Work Phone: [facility] 02-01-2024 09:27-0400 Body weight 81.64 kg [employer] Work Phone: [facility] 12-22-2023 08:38-0400 Blood Pressure Location NIURKAMICK MG [facility] 12-22-2023 08:38-0400 Body temperature 97.88 [degF] NIURKA MG [facility] 12-22-2023 08:38-0400 Diastolic blood pressure 82 mm[Hg] NIURKA MG [facility] 12-22-2023 08:38-0400 Respiratory rate 16 /min NIURKA HOODRY [facility] 12-22-2023 08:38-0400 Systolic blood pressure 124 mm[Hg] NIURKA SAURAV [facility] 01-09-2022 11:52-0400 Body height 175.26 cm Sherwin Haney Work Phone: [facility] 600 DO Work Phone: 01-09-2022 11:52-0400 Body mass index (BMI) [Ratio] 26.43 kg/m2 Sherwin Dudleyman Work Phone: [facility] [employer] 600 DO Work Phone: 01-09-2022 11:52-0400 Body surface area Derived from formula 1.97 m2 Sherwin Haney Work Phone: [facility] [employer] 600 DO Work Phone: 01-09-2022 11:52-0400 Body weight 81.19 kg Sherwin Dudleyman Work Phone: [facility] [employer] 600 DO Work Phone: 01-09-2022 11:52-0400 Diastolic blood pressure 84 mm[Hg] Sherwin Haney Work Phone: [facility] [employer] 600 DO Work Phone: 01-09-2022 11:52-0400 Heart rate 72 /min Sherwin Dudleyman Work Phone: [facility] [employer] 600 DO Work Phone: 01-09-2022 11:52-0400 Systolic blood pressure 138 mm[Hg] Sherwin Haney Work Phone: [facility] [employer] 600 DO Work Phone: 01-09-2022 11:33-0400 Body height 175.26 cm Sherwin Haney Work Phone: [facility] [employer] 600 DO Work Phone: 01-09-2022 11:33-0400 Body mass index (BMI) [Ratio] 26.43 kg/m2 Sherwin Haney Work Phone: [facility] [employer] 600 DO Work Phone: 01-09-2022 11:33-0400 Body surface area Derived from formula 1.97 m2 Sherwin Dudleyman Work Phone: [facility] [employer] 600 DO Work Phone: 01-09-2022 11:33-0400 Body weight 81.19 kg Sherwin Caro Diane Work Phone: [facility] [employer] 600 DO Work Phone: 01-09-2022 11:33-0400 Diastolic blood pressure 84 mm[Hg] Sherwin Dudleyman Work Phone: [facility] [employer] 600 DO Work Phone: 01-09-2022 11:33-0400 Heart rate 72 /min Sherwin Dudleyman Work Phone: [facility] [employer] 600 DO Work Phone: 01-09-2022 11:33-0400 Systolic blood pressure 160 mm[Hg] Sherwin Dudleyman Work Phone: [facility] [employer] 600 DO Work Phone: 12-30-2021 12:00-0400 Body height 175.26 cm Jackie Olexa Other [employer] Other 12-30-2021 12:00-0400 Body mass index (BMI) [Ratio] 27.32 kg/m2 Jackie Olexa Other [employer] Other 12-30-2021 12:00-0400 Body weight 83.92 kg Jackie Olexa Other [employer] Other 10-29-2021 14:45-0400 Body height 175.26 cm Jackie Olexa Other [employer] Other 10-29-2021 14:45-0400 Body mass index (BMI) [Ratio] 27.32 kg/m2 Jackie Olexa Other [employer] Other 10-29-2021 14:45-0400 Body weight 83.92 kg Jackie Jones Other [employer] Other 05-21-2021 09:04-0500 Body height 175.26 cm Sherwin Haney Work Phone: [facility] 250 DO Work Phone: 05-21-2021 09:04-0500 Body mass index (BMI) [Ratio] 26.43 kg/m2 Sherwin Haney Work Phone: [facility] 250 DO Work Phone: 05-21-2021 09:04-0500 Body surface area Derived from formula 1.97 m2 Sherwin Haney Work Phone: [facility] 250 DO Work Phone: 05-21-2021 09:04-0500 Body weight 81.19 kg Sherwin Haney Work Phone: [facility] 250 DO Work Phone: 05-21-2021 09:04-0500 Diastolic blood pressure 78 mm[Hg] Sherwin Haney Work Phone: [facility] 250 DO Work Phone: 05-21-2021 09:04-0500 Heart rate 76 /min Sherwin Haney Work Phone: [facility] 250 DO Work Phone: 05-21-2021 09:04-0500 Systolic blood pressure 120 mm[Hg] Sherwin Haney Work Phone: [facility] 250 DO Work Phone: 05-09-2021 14:00-0500 38 1 Sherwin Haney Work Phone: [facility] [address] [place] Work Phone: Comment on above: [id number] Encounters Encounter Date Encounter Type Care Provider Facility Start: 03-15-2024 ambulatory Julio OROZCO Facility :[facility] Start: 02-16-2024 End: 02-16-2024 ambulatory Julio OROZCO [facility] Start: 02-16-2024 End: 02-16-2024 Patient encounter procedure Julio OROZCO [facility] Start: 02-01-2024 End: 02-01-2024 [facility] Work Phone: Start: 02-01-2024 End: 02-01-2024 ambulatory Niurka Mg Facility:[facility] Start: 12-22-2023 End: 12-22-2023 ambulatory NIURKA GM Facility:[facility] Start: 12-22-2023 End: 12-22-2023 Patient encounter procedure [facility] Start: 09-22-2023 End: 09-22-2023 ambulatory NIURKA MG Facility:[facility] Start: 09-22-2023 End: 09-22-2023 Patient encounter procedure NIURKA MG [facility] Start: 09-11-2023 ambulatory Julio OROZCO Facility:[facility] Start: 02-05-2022 Rx Renewal Sherwin tariq Work Phone: [facility] 250 DO Work Phone: Start: 01-09-2022 End: 01-09-2022 ambulatory Niurka Huertas Other [employer] Other Start: 01-09-2022 Telephone encounter Niurka Huertas [facility] Start: 01-09-2022 Office outpatient vi sit 25 minutes Sherwin Haney Work Phone: [facility] 600 DO Work Phone: Start: 01-08-2022 Encounter for other preprocedural examination JACKIE OLEXA [facility] Start: 01-08-2022 Encounter for preprocedural laboratory examination JACKIE OLEXA [facility] Start: 01-07-2022 End: 01-07-2022 ambulatory JACKIE OLEXA Facility:[facility] Start: 01-06-2022 End: 01-06-2022 ambulatory Jackie Olexa Other [facility] [employer] Other Start: 01-06-2022 Telephone encounter Jackie Olexa [facility] Start: 01-02-2022 End: 01-03-2022 ambulatory JACKIE OLEXA Facility:[facility] Start: 01-02-2022 End: 01-03-2022 Encounter for preprocedural laboratory examination JACKIE OLEXA Facility: Start: 01-01-2022 Rx Renewal Sherwin tariq Work Phone: [facility] 250 DO Work Phone: Start: 12-30-2021 End: 12-30-2021 ambulatory Jackie Olexa Other [employer] Other Start: 12-30-2021 Office outpatient vi sit 25 minutes Jackie Olexa [facility] Start: 12-10-2021 End: 12-10-2021 ambulatory Jackie Olexa Other [employer] Other Start: 12-10-2021 Telephone encounter Jackie Olexa [facility] Start: 10-29-2021 End: 10-29-2021 ambulatory Jackie Olexa Other [employer] Other Start: 10-29-2021 Office outpatient vi sit 25 minutes [facility] Start: 10-15-2021 End: 10-15-2021 ambulatory Jackie Cuevasxa Other [facility] [employer] Other Start: 10-15-2021 Telephone encounter Jackie Cuevasxa [facility] Start: 09-10-2021 End: 09-10-2021 ambulatory Jackie Cuevasxa Other [facility] [employer] Other Start: 09-10-2021 Office outpatient vi sit 15 minutes Jackie Cuevasxa [facility] [place] Orthopedics Start: 08-27-2021 Encounter for preprocedural cardiovascular examination [facility] Start: 08-27-2021 Encounter for preprocedural laboratory examination [facility] Start: 08-27-2021 End: 08-27-2021 ambulatory JACKIE JONES Facility:[facility] Start: 08-23-2021 End: 08-24-[address] BRICE BANG Facility:[facility] Start: 08-23-2021 End: 08-24-2021 Encounter for preprocedural cardiovascular examination DR BRICE BANG Facility:[facility] Start: 08-20-2021 End: 08-21-[address] EMILY CAMARILLO Facility:[facility] Start: 05-21-2021 Patient encounter procedure Sherwin Haney Work Phone: [facility] [facility] DO Work Phone: Start: 05-10-2021 Chart Update Sherwin tariq Work Phone: [facility] 250 DO Work Phone: Start: 05-09-2021 Patient encounter procedure Sherwin Haney Work Phone: [facility] [facility] [place] Work Phone: Start: 04-18-2021 Patient encounter procedure [facility] Work Phone: Procedures Date Procedure Procedure Detail Performing Clinician Start: 02-01-2024 MR prostate wo/w con Er ie [facility] Work Phone: Anal fissure (disorder) Az [facility] Arthroplasty of knee Sherwin Gordo DudleyDiane Work Phone: Arthroscopy of shoulder [facility] Cardiac catheterization Adin Caro Diane Work Phone: Colonoscopy NIURKA SAURAV Decompression of median nerve Sherwinwilton Dudleyman Work Phone: Decompression of median nerve Julio OROZCO History of operative procedure on knee NIURKA SAURAV History of operative procedure on knee Julio OROZCO Repair of musculoten dinous cuff of shoulder Sherwin Caro Diane Work Phone: Total colonoscopy Sherwin Haney Work Phone: Total knee replacement Devin OROZCO Plan of Treatment Date Care Activity Detail Author Start: 10-16-2022 FUV, Provider: Liam Shi, Status: Pen, Time: 8:40 AM FUV, Provider: Liam Shi, Status: Pen, [facility]: Start: 05-27-2022 FUV, Provider: Liam Shi, Status: Pen, Time: 8:30 AM FUV, Provider: Liam Shi, Status: Pen, Time: [facility] Work Phone: Start: 01-09-2022 FUV, Provider: Liam Shi, Status: Pen, Time: 11:30 AM FUV, Provider: Liam Shi, Status: Pen, Time: 11:30 AM [facility] 250 DO Work Phone: Start: 08-27-2021 FUV, Provider: Liam Shi, Status: Pen, Time: 9:00 AM FUV, Provider: Liam Shi, Status: Pen, Time: 9:00 AM [facility] 250 DO Work Phone: Start: 05-21-2021 FUV, Provider: Liam Shi, Status: Pen, Time: 8:40 AM FUV, Provider: Liam Shi, Status: Pen, Time: 8:40 AM [facility] [facility] [place] Work Phone: Start: 05-09-2021 MUGA, Provider: REBA HHVI NUCLEAR 01,[id number], Status: Pen, Time: 2:00 PM MUGA, Provider: REBA HHVI NUCLEAR 01,[id number], Status: Pen, Time: 2:00 PM [facility] DO Work Phone: Payers Date Payer Category Payer Self-pay 2023 Private Health Insurance [id number] 1959 Medicare [id number] 2.1 [id number] 1959 Private Health Insurance CLI [id number] 1955 Unknown [id number] 1955 Unknown [id number] 1955 Unknown [id number] 1955 Unknown [id number] 1955 Unknown [id number] 1955 Unknown [id number] 1955 Unknown [id number] 1955 Unknown [id number] 1955 Unknown [id number] Private Health Insurance CLI [id number] Unknown Unknown [id number] Unknown Bishop TAVAREZ/SHAKIR [id number] Social History Date Type Detail Facility No illicit drug use No illicit drug use [facility] [address] DO Work Phone: Comment on above: Socially; iced tea and soda da valentin; Sex Assigned At [facility] Start: 09-22-2023 End: 12-22-2023 Tobacco smoking status Never smoked tobacco (finding) [facility] Tobacco smoking status Never [facility] Start: 1955 Sex Assigned At Male F [facility] Functional Status Date Assessment Result Facility 02-16-2024 Functional Status No [facility] 12-22-2023 Functional Status N/A [facility] Clinical Notes 08-23-2021 to 12-22-2023 Note Date & Type Note Facility 12-22-2023 Hospital Discharge instructions Patient Education 12/22/2023 09:03:52 Prostate Cancer Screening Prostate Cancer Screening Prostate cancer screening is testing that is done to check for the presence of prostate cancer in men. The prostate gland is a walnut-sized gland that is located below the bladder and in front of the rectum in males. The function of the prostate is to add fluid to semen during ejaculation. Prostate cancer is one of the most common types of cancer in men. Who should have prostate cancer screening? Screening recommendations vary based on age and other risk factors, as well as between the professional organizations who make the recommendations. In general, screening is recommended if: You are age 50 to 70 and have an average risk for prostate cancer. You should talk with your health care provider about your need for screening and how often screening should be done. Because most prostate cancers are slow growing and will not cause , screening in this age group is generally reserved for men who have a 10- to 15-year life expectancy. You are younger than age 50, and you have these risk factors: ?Having a father, brother, or uncle who has been diagnosed with prostate cancer. The risk is higher if your family member's cancer occurred at an early age or if you have multiple family members with prostate cancer at an early age. ?Being a male who is Black or is of [place] or sub-Saharan descent. In general, screening is not recommended if: You are younger than age 40. You are between the ages of 40 and 49 and you have no risk factors. You are 70 years of age or older. At this age, the risks that screening can cause are greater than the benefits that it may provide. If you are at high risk for prostate cancer, your health care provider may recommend that you have screenings more often or that you start screening at a younger age. How is screening for prostate cancer done? The recommended prostate cancer screening test is a blood test called the prostate-specific antigen (PSA) test. PSA is a protein that is made in the prostate. As you age, your prostate naturally produces more PSA. Abnormally high PSA levels may be caused by: Prostate cancer. An enlarged prostate that is not caused by cancer (benign prostatic hyperplasia, or BPH). This condition is very common in older men. A prostate gland infection (prostatitis) or urinary tract infection. Certain medicines such as male hormones (like testosterone) or other medicines that raise testosterone levels. A rectal exam may be done as part of prostate cancer screening to help provide information about the size of your prostate gland. When a rectal exam is performed, it should be done after the PSA level is drawn to avoid any effect on the results. Depending on the PSA results, you may need more tests, such as: A physical exam to check the size of your prostate gland, if not done as part of screening. Blood and imaging tests. A procedure to remove tissue samples from your prostate gland for testing (biopsy). This is the only way to know for certain if you have prostate cancer. What are the benefits of prostate cancer screening? Screening can help to identify cancer at an early stage, before symptoms start and when the cancer can be treated more easily. There is a small chance that screening may lower your risk of dying from prostate cancer. The chance is small because prostate cancer is a slow-growing cancer, and most men with prostate cancer from a different cause. What are the risks of prostate cancer screening? The main risk of prostate cancer screening is diagnosing and treating prostate cancer that would never have caused any symptoms or problems. This is called overdiagnosisand overtreatment. PSA screening cannot tell you if your PSA is high due to cancer or a different cause. A prostate biopsy is the only procedure to diagnose prostate cancer. Even the results of a biopsy may not tell you if your cancer needs to be treated. Slow-growing prostate cancer may not need any treatment other than monitoring, so diagnosing and treating it may cause unnecessary stress or other side effects. Questions to ask your health care provider When should I start prostate cancer screening? What is my risk for prostate cancer? How often do I need screening? What type of screening tests do I need? How do I get my test results? What do my results mean? Do I need treatment? Where to find more information The [place] [employer]: www.cancer.org [place] [employer]: www.auanet.org Contact a health care provider if: You have difficulty urinating. You have pain when you urinate or ejaculate. You have blood in your urine or semen. You have pain in your back or in the area of your prostate. Summary Prostate cancer is a common type of cancer in men. The prostate gland is located below the bladder and in front of the rectum. This gland adds fluid to semen during ejaculation. Prostate cancer screening may identify cancer at an early stage, when the cancer can be treated more easily and is less likely to have spread to other areas of the body. The prostate-specific antigen (PSA) test is the recommended screening test for prostate cancer, but it has associated risks. Discuss the risks and benefits of prostate cancer screening with your health care provider. If you are age 70 or older, the risks that screening can cause are greater than the benefits that it may provide. This information is not intended to replace advice given to you by your health care provider. Make sure you discuss any questions you have with your health care provider. Document Revised: 11/18/2021 Document Reviewed: 11/18/2021 [employer] Patient Education 2022 [employer]. 12/22/2023 09:03:50 Magnetic Resonance Imaging Magnetic Resonance Imaging Magnetic resonance imaging (MRI) is a painless test that produces detailed images of organs and tissues inside the body without using X-rays. During an MRI, strong magnets and radio waves work together to form images. MRI images may provide more details about a medical condition than X-rays, CT scans, and ultrasounds can provide. For a standard MRI, you will lie on a table that slides into a tunnel. In an open MRI, the tunnel will be open at the sides. In some cases, dye (contrast material) may be injected into your bloodstream to make the MRI images even clearer. Tell a health care provider about: Any allergies you have. All medicines you are taking, including vitamins, herbs, eye drops, creams, and myrq-yyb-kjyuxpu medicines. Any surgeries you have had. Any medical conditions you have. Any metal you may have in your body. The magnets used in an MRI can cause metal objects in your body to move. Metal can also make it difficult to get clear images. Objects that may contain metal include: ?Any joint replacement (prosthesis), such as an artificial knee or hip. ?An implanted defibrillator, pacemaker, or neurostimulator. ?A metallic ear implant (cochlear implant). ?An artificial heart valve. ?A metallic object in the eye. ?Metal splinters. ?Bullet fragments. ?A port for delivering insulin or chemotherapy. Any tattoos you have. Some of the darker inks can cause problems with testing. Whether you are using a control implant such as an intrauterine device (IUD). Whether you are , may be , or are . Any fear of cramped spaces (claustrophobia). If this is a problem, it usually can be managed with medicines given prior to the MRI. What are the risks? Generally, this is a safe test. However, problems may occur, such as: If you have metal in your body and it is close to the area being tested, it may be hard to get high-quality images. If you are , you should avoid MRI tests during the first three months of . An MRI may affect an unborn baby. If dye is used: ?You may need to stop until the dye leaves your body naturally, if this applies. ?There is a risk of an allergic reaction to the dye. You can take medicines to prevent this reaction or to treat it if you have allergy symptoms. ?The dye can cause damage to your kidneys. Drinking plenty of water before and after the procedure can help prevent this problem. What happens before the procedure? You will be asked to remove all metal, including: ?A watch, jewelry (including jewelry in piercings), and other metal objects. ?Hearing aids. ?Dentures. ?An underwire bra. ?Makeup. Some makeup contains small amounts of metal. Braces and fillings are normally not a problem. If you are , ask your health care provider if you need to pump before your test. You may need to stop temporarily if dye will be used. What happens during the procedure? You may be given earplugs or headphones to listen to music. The MRI machine can be noisy. You will lie flat on your back on a long table. If dye will be used, an IV will be inserted into one of your veins. Dye will be injected into your IV and travel through your bloodstream. The table will slide into a tunnel that has magnets inside. When you are inside the tunnel, you will still be able to talk to your health care provider. You will be asked to lie very still while images are taken. Your health care provider will tell you when you can move. You may have to wait a few minutes to make sure that the images produced during the test are clear. When all images are produced, the table will slide out of the tunnel. The procedure can last from 30 minutes to over an hour. The procedure may vary among health care providers and hospitals. What can I expect after the procedure? You may be taken to a recovery area if sedation medicines were used. Your blood pressure, heart rate, breathing rate, and blood oxygen level will be monitored until you leave the hospital or clinic. If dye was used: ?It will leave your body through your urine within a day. You may be told to drink plenty of fluids to help flush the dye out of your system. ?Do not breastfeed your child until your health care provider says that this is safe. Follow these instructions at home: You may return to your normal activities right away, or as told by your health care provider. It is up to you to get your test results. Ask your health care provider, or the department that is doing the test, when your results will be ready. Keep all follow-up visits. This is important. Talk with your health care provider about what your test results mean. Summary Magnetic resonance imaging (MRI) is a painless test that produces detailed pictures of the inside of your body without using X-rays. Strong magnets and radio waves work together to form very detailed and clear images. In some cases, dye (contrast material) may be injected into your body to make MRI images even clearer. Before your MRI, be sure to tell your health care provider about any metal you may have in your body. Talk with your health care provider about what your test results mean. This information is not intended to replace advice given to you by your health care provider. Make sure you discuss any questions you have with your health care provider. Document Revised: 02/05/2022 Document Reviewed: 09/26/2020 [employer] Patient Education 2022 [employer]. Follow Up Care 09/22/2023 16:15:30 With:NIURKA MG PA-C, URL Address: [address] [place] [phone] When: Unknown Comments:f/u pending prostate MRI and select MDX results [facility] 12-22-2023 Note Patient Education Oncology Prostate Cancer Screening Prostate cancer screening is testing that is done to check for the presence of prostate cancer in men. The prostate gland is a walnut-sized gland that is located below the bladder and in front of the rectum in males. The function of the prostate is to add fluid to semen during ejaculation. Prostate cancer is one of the most common types of cancer in men. Who should have prostate cancer screening? Screening recommendations vary based on age and other risk factors, as well as between the professional organizations who make the recommendations. In general, screening is recommended if: ? You are age 50 to 70 and have an average risk for prostate cancer. You should talk with your health care provider about your need for screening and how often screening should be done. Because most prostate cancers are slow growing and will not cause , screening in this age group is generally reserved for men who have a 10- to 15-year life expectancy. ? You are younger than age 50, and you have these risk factors: ? Having a father, brother, or uncle who has been diagnosed with prostate cancer. The risk is higher if your family member's cancer occurred at an early age or if you have multiple family members with prostate cancer at an early age. ? Being a male who is Black or is of [place] or sub-Saharan descent. In general, screening is not recommended if: ? You are younger than age 40. ? You are between the ages of 40 and 49 and you have no risk factors. ? You are 70 years of age or older. At this age, the risks that screening can cause are greater than the benefits that it may provide. If you are at high risk for prostate cancer, your health care provider may recommend that you have screenings more often or that you start screening at a younger age. How is screening for prostate cancer done? The recommended prostate cancer screening test is a blood test called the prostate-specific antigen (PSA) test. PSA is a protein that is made in the prostate. As you age, your prostate naturally produces more PSA. Abnormally high PSA levels may be caused by: ? Prostate cancer. ? An enlarged prostate that is not caused by cancer (benign prostatic hyperplasia, or BPH). This condition is very common in older men. ? A prostate gland infection (prostatitis) or urinary tract infection. ? Certain medicines such as male hormones (like testosterone) or other medicines that raise testosterone levels. A rectal exam may be done as part of prostate cancer screening to help provide information about the size of your prostate gland. When a rectal exam is performed, it should be done after the PSA level is drawn to avoid any effect on the results. Depending on the PSA results, you may need more tests, such as: ? A physical exam to check the size of your prostate gland, if not done as part of screening. ? Blood and imaging tests. ? A procedure to remove tissue samples from your prostate gland for testing (biopsy). This is the only way to know for certain if you have prostate cancer. What are the benefits of prostate cancer screening? ? Screening can help to identify cancer at an early stage, before symptoms start and when the cancer can be treated more easily. ? There is a small chance that screening may lower your risk of dying from prostate cancer. The chance is small because prostate cancer is a slow-growing cancer, and most men with prostate cancer from a different cause. What are the risks of prostate cancer screening? The main risk of prostate cancer screening is diagnosing and treating prostate cancer that would never have caused any symptoms or problems. This is called overdiagnosisand overtreatment. PSA screening cannot tell you if your PSA is high due to cancer or a different cause. A prostate biopsy is the only procedure to diagnose prostate cancer. Even the results of a biopsy may not tell you if your cancer needs to be treated. Slow-growing prostate cancer may not need any treatment other than monitoring, so diagnosing and treating it may cause unnecessary stress or other side effects. Questions to ask your health care provider ? When should I start prostate cancer screening? ? What is my risk for prostate cancer? ? How often do I need screening? ? What type of screening tests do I need? ? How do I get my test results? ? What do my results mean? ? Do I need treatment? Where to find more information ? The [place] [employer]: www.cancer.org ? [place] [employer]: www.auanet.org Contact a health care provider if: ? You have difficulty urinating. ? You have pain when you urinate or ejaculate. ? You have blood in your urine or semen. ? You have pain in your back or in the area of your prostate. Summary ? Prostate cancer is a common type of cancer in men. The prostate gland is located below the bladder and in front of the rectum. (more content not included)... [facility] 09-22-2023 Hospital Discharge instructions Patient Education 09/22/2023 18:30:59 Prostate Cancer Screening Prostate Cancer Screening Prostate cancer screening is testing that is done to check for the presence of prostate cancer in men. The prostate gland is a walnut-sized gland that is located below the bladder and in front of the rectum in males. The function of the prostate is to add fluid to semen during ejaculation. Prostate cancer is one of the most common types of cancer in men. Who should have prostate cancer screening? Screening recommendations vary based on age and other risk factors, as well as between the professional organizations who make the recommendations. In general, screening is recommended if: You are age 50 to 70 and have an average risk for prostate cancer. You should talk with your health care provider about your need for screening and how often screening should be done. Because most prostate cancers are slow growing and will not cause , screening in this age group is generally reserved for men who have a 10- to 15-year life expectancy. You are younger than age 50, and you have these risk factors: ?Having a father, brother, or uncle who has been diagnosed with prostate cancer. The risk is higher if your family member's cancer occurred at an early age or if you have multiple family members with prostate cancer at an early age. ?Being a male who is Black or is of [place] or sub-Saharan descent. In general, screening is not recommended if: You are younger than age 40. You are between the ages of 40 and 49 and you have no risk factors. You are 70 years of age or older. At this age, the risks that screening can cause are greater than the benefits that it may provide. If you are at high risk for prostate cancer, your health care provider may recommend that you have screenings more often or that you start screening at a younger age. How is screening for prostate cancer done? The recommended prostate cancer screening test is a blood test called the prostate-specific antigen (PSA) test. PSA is a protein that is made in the prostate. As you age, your prostate naturally produces more PSA. Abnormally high PSA levels may be caused by: Prostate cancer. An enlarged prostate that is not caused by cancer (benign prostatic hyperplasia, or BPH). This condition is very common in older men. A prostate gland infection (prostatitis) or urinary tract infection. Certain medicines such as male hormones (like testosterone) or other medicines that raise testosterone levels. A rectal exam may be done as part of prostate cancer screening to help provide information about the size of your prostate gland. When a rectal exam is performed, it should be done after the PSA level is drawn to avoid any effect on the results. Depending on the PSA results, you may need more tests, such as: A physical exam to check the size of your prostate gland, if not done as part of screening. Blood and imaging tests. A procedure to remove tissue samples from your prostate gland for testing (biopsy). This is the only way to know for certain if you have prostate cancer. What are the benefits of prostate cancer screening? Screening can help to identify cancer at an early stage, before symptoms start and when the cancer can be treated more easily. There is a small chance that screening may lower your risk of dying from prostate cancer. The chance is small because prostate cancer is a slow-growing cancer, and most men with prostate cancer from a different cause. What are the risks of prostate cancer screening? The main risk of prostate cancer screening is diagnosing and treating prostate cancer that would never have caused any symptoms or problems. This is called overdiagnosisand overtreatment. PSA screening cannot tell you if your PSA is high due to cancer or a different cause. A prostate biopsy is the only procedure to diagnose prostate cancer. Even the results of a biopsy may not tell you if your cancer needs to be treated. Slow-growing prostate cancer may not need any treatment other than monitoring, so diagnosing and treating it may cause unnecessary stress or other side effects. Questions to ask your health care provider When should I start prostate cancer screening? What is my risk for prostate cancer? How often do I need screening? What type of screening tests do I need? How do I get my test results? What do my results mean? Do I need treatment? Where to find more information The [place] [employer]: www.cancer.org [place] [employer]: www.auanet.org Contact a health care provider if: You have difficulty urinating. You have pain when you urinate or ejaculate. You have blood in your urine or semen. You have pain in your back or in the area of your prostate. Summary Prostate cancer is a common type of cancer in men. The prostate gland is located below the bladder and in front of the rectum. This gland adds fluid to semen during ejaculation. Prostate cancer screening may identify cancer at an early stage, when the cancer can be treated more easily and is less likely to have spread to other areas of the body. The prostate-specific antigen (PSA) test is the recommended screening test for prostate cancer, but it has associated risks. Discuss the risks and benefits of prostate cancer screening with your health care provider. If you are age 70 or older, the risks that screening can cause are greater than the benefits that it may provide. This information is not intended to replace advice given to you by your health care provider. Make sure you discuss any questions you have with your health care provider. Document Revised: 11/18/2021 Document Reviewed: 11/18/2021 [employer] Patient Education 2022 [employer]. Follow Up Care 09/15/2023 09:41:52 With:SAURAV TEJADA, NIURKA Rubio, URL Address: [address] [place] [address] When:3 months [facility] 01-06-2022 Evaluation note Encounter Date Diagnosis Assessment Notes Jan, Other specified postprocedural states (ICD-10 - Z98.890) [facility] Other 07-25-2022 Evaluation note* Encounter Date Diagnosis Assessment Notes Treatment Notes Treatment Clinical Notes Dec, Left carpal tunnel syndrome (ICD-10 - G56.02) We will plan on carpal tunnel release.The patient has stated that they do not want to live in this condition any longer and would like to proceed with surgery. I feel that this is a reasonable option at this point and we may be able to improve function and decrease pain and numbness. We have discussed the process and procedure in detail including not eating or drinking 8 hrs prior to surgery, the need for anesthesia and associated respiratory, cardiac, and patient position complications (such as nerve traction and compression). We discussed that incisional pain and continued neurologic symptoms can persist for months after surgery. The complications of infection, persistent symptoms, sensory and motor nerve injury are well known problems that can require repeat surgeries. Patient is fully aware that this wrist may never be the same. We discussed that our team will do everything we can to help achieve the best outcome. Dec, Numbness (ICD-10 - R20.0) [facility] Other 05-24-2022 Evaluation note* Encounter Date Diagnosis Assessment Notes Treatment Notes Treatment Clinical Notes October, Tear of right biceps muscle, initial encounter (ICD-10 - S46.211A) October, Traumatic complete t ear of right rotator cuff, initial encounter (ICD-10 - S46.011A) We will plan on arthroscopic rotator cuff repair. The patient has stated that they do not want to live in this condition any longer and would like to proceed with surgery. I feel that this is a reasonable option at this point and we may be able to improve function and decrease pain. We have discussed the process and procedure in detail including not eating or drinking 8 hrs prior to surgery, the need for general anesthesia and associated respiratory, cardiac, and patient position complications (such as nerve traction and compression). The benefit of regional block anesthesia and complications of arm numbness and neck pain. We discussed that pain and stifffness can be expected after surgery for months. The complications of infection, hardware pullout, cuff repair failure, fdc pain and stiffness are well known problems that can require repeat surgeries. Patient is fully aware that this shoulder may never be the same. We discussed that our team will do everything we can to help achieve the best outcome. Patient states they are interested in planning surgery and will call when ready to schedule. October, Osteoarthritis of ri ght acromioclavicular joint (ICD-10 - M19.011) October, Right carpal tunnel syndrome (ICD-10 - G56.01) Discussed with patient he is progressing well from surgery. Discussed with patient to continue to progress activity and motion October, Other specified postprocedural states (ICD-10 - Z98.890) [facility] Other 05-10-2022 Evaluation note* Encounter Date Diagnosis Assessment Notes Treatment Notes Treatment Clinical Notes October, Acute pain of right shoulder (ICD-10 - M25.511) October, Right rotator cuff tendonitis (ICD-10 - M75.81) [facility] Other 04-05-2022 Evaluation note* Encounter Date Diagnosis Assessment Notes Treatment Notes Treatment Clinical Notes Sep, Pain in right hand (ICD-10 - M79.641) Sep, Pain in left hand (ICD-10 - M79.642) Sep, Acute pain of right shoulder (ICD-10 - M25.511) Sep, Bilateral carpal tunnel syndrome (ICD-10 - G56.03) Sep, History of carpal tunnel surgery of right wrist (ICD-10 - Z98.890) Patient is progressing well from surgery. Sutures removed today under clean conditions, patient tolerated well. Instructed on protecting incision while healing. Provided cock up wrist splint to wear while working while incision is still healing. Call with questions/concerns. Sep, Right rotator cuff tendonitis (ICD-10 - M75.81) This appears to be pain secondary to subacromial bursitis / rotator cuff tendonitis / possible partial tearing. We discussed and demonstrated gentle motion exercise and rotator cuff strengthening exercise. Discussed the use of non-steroidal anti-inflammatory medication. Patient declines cortisone injection today. Formal therapy order provided today. [facility] Other 03-22-2022 NoteOPERATIVE NOTE ADDENDUM Addendum: [facility] NoteEXAMINATION: XR CHEST 2 V HISTORY: Pre-surgery evaluation COMPARISON: No relevant comparison available. FINDINGS: LUNGS: Slight wall thickening of a few central bronchi. No peripheral infiltrates or mass. VASCULATURE: No increased pulmonary vasculature. PLEURA: No pneumothorax, effusion, or pleural thickening. CARDIAC: No cardiomegaly or cardiac silhouette abnormality. MEDIASTINUM: No visible mass or adenopathy. BONES: No fracture or visible bone lesion. OTHER: Negative. IMPRESSION: 1. No peripheral infiltrates to suggest pneumonia. 2. Possible mild bronchiolitis. Electronically authenticated by: BRICE BANG Date: 2021-08-23 09:50[facility] Future Appointments Appointment Date:12/22/2023 08:40:00 AM Scheduled Provider:NIURKA MG PA-C Location:[facility] Appointment Type:URO Office Visit Diagnostic Tests Pending * PSA Free & Total 09/22/23 [facility] evaluation + Plan note Future Appointments Appointment Date:03/03/2024 12:00:00 PM Scheduled Provider: Location:.[facility] Appointment Type:US Prostate/Scrotum (FT) Appointment Date:03/03/2024 12:15:00 PM Scheduled Provider: Location:[facility] Appointment Type:Surgery FT Appointment Date:03/15/2024 09:30:00 AM Scheduled Provider:Julio OROZCO MD Location:[facility] Appointment Type:URO Office Visit Future Scheduled Tests Radiology* US Prostate Biopsy 03/03/24 [facility] Other Evaluation noteNo assessment information available [facility] Work Phone: History general Narrative - Reported* Type Description Date Medical History Cervicalgia Medical History Colon polyp Medical History Hyperlipidemia Surgical History Right knee 1990 Surgical History Rectal surgery 2010 Surgical History Left Rotator Cuff Surgical History right TKA- [facility] Hospitalization History See above [facility] Other History of Present illness NarrativePatient returns in follow-up of problems as noted. He is doing well. He denies any syncope near syncope palpitation or other arrhythmia symptomatology. Likewise she has no orthopnea PND or dyspnea with exertion. He is doing well on Entresto and spironolactone therapy. As before he does not wish to take beta-blockers because of side effects but he is willing to entertain the initiation of SGLT2 inh ibitor therapy because of this a prescription is provided. The rationale for this medicine and its potential to improve his chronic systolic heart failure from functional class III to functional class II or even functional class I was emphasized and because of all the above he is willing to give beverly try. Blood pressure was high on arrival but better after recheck and because of all the above we suggest continued therapy with the addition of Jardiance and otherwise follow-up in about 9 months. He was encouraged to call if any symptoms arise.[facility] 600 DO Work Phone: Hospital course Narrative No data available for this section [facility] Hospital Discharge instructions No data available for this section [facility] Progress note No data available for this section [facility] Summary Purpose Family History No Family History Records FoundUnknown Family Member Name Dates Details Family history of malignant neoplasm of breast: Mother(V16.3, Z80.3) Status:Active Family history of malignant neoplasm of ovary: Mother(V16.41, Z80.41) Status:Active Cardiac defibrillator in darron ce: Father Status:Active Unknown Family Member Name Dates Details Family history of malignant neoplasm of breast: Mother(V16.3, Z80.3) Status:Active Family history of malignant neoplasm of ovary: Mother(V16.41, Z80.41) Status:Active Cardiac defibrillator in darron ce: Father Status:Active Unknown Family Member Name Dates Details Family history of malignant neoplasm of breast: Mother(V16.3, Z80.3) Status:Active Family history of malignant neoplasm of ovary: Mother(V16.41, Z80.41) Status:Active Cardiac defibrillator in darron ce: Father Status:Active Unknown Family Member Name Dates Details Cardiac defibrillator in darron ce: Father Status:Active Family history of malignant neoplasm of ovary: Mother(V16.41, Z80.41) Status:Active Family history of malignant neoplasm of breast: Mother(V16.3, Z80.3) Status:Active Relationship Condition Age at Onset Recorded Date/T cr father History of cardiac d efibrillator placement Unknown Cardiac arrhythmia Unknown mother Hypertension Unknown father Heart disease Unknown Coronary artery disease Unknown mother Family history of colon cancer Unknown Malignant neoplasm Unknown Advance Directives No Advanced Directives Records Found Advance Directive Response Recorded Date/ Time Advance Directives No March 16, 2017 8:47pm Chief Complaint JAVI CASON is being seen for Echo results.JAVI CASON is being seen for a 9 month follow-up of. Chief Complaint and Reason for Visit Chief Complaint r97.20 Additional Source Comments (unrecognized sect ion and content) No Status Records FoundNo Status Records FoundNo Status Records FoundNo Status Records FoundNo Status Records FoundNo Status Records FoundNo Status Records FoundNo Status Records FoundNo Status Records FoundNo Status Records Found INFORMATION SOURCE (unrecogn ized section and content) DATE CREATED AUTHOR 05/15/2021 [facility] DATE CREATED AUTHOR AUTHOR'S ORGANIZ ATION 01/10/2022 [employer] DATE CREATED AUTHOR AUTHOR'S ORGANIZ ATION 05/30/2022 [facility] DATE CREATED AUTHOR AUTHOR'S ORGANIZ ATION 02/02/2024 [facility] DATE CREATED AUTHOR AUTHOR'S ORGANIZ ATION 02/17/2024 [facility] REASON FOR VISIT (unrecogniz ed section and content) Recheck Right Carpal Tunnel ReleaseMRIMRI ResultssurgeryDiscuss Left Carpal Tunnel Releasepost op scriptrx request Patient Care team informatio n (unrecognized section and content) Team Status: Active Member Role Status Dates [facility] Primary Care Provider Active Team Status: Inactive Member Role Status Dates Niurka Mg PA-C Attending Provider Active Start: February 01, 2024 End: February 01, 2024 [facility] Primary Care Provider Active Start: February 01, 2024 End: February 01, 2024 Goals (unrecognized section and content) Goals may be documented in a n alternate section FOR RECORDS PERTAINING TO PATIENTS WHO ARE OR HAVE BEEN ENROLLED IN A CHEMICAL DEPENDENCY/SUBSTANCEABUSE PROGRAM, SOME INFORMATION MAY BE OMITTED. This clinical summary was aggregated from multiple sources. Caution should be exercised in using it in the provision of clinical care. This summary normalizes information from multiple sources, and as a consequence, information in this document may materially change the coding, format and clinical context of patient data. In addition, data may be omitted in some cases. CLINICAL DECISIONS SHOULD BE BASED ON THE PRIMARY CLINICAL RECORDS. [facility] [employer] [facility]. provides no warranty or guarantee of the accuracy or completeness of information in this document.
== END 2024-02-18 07:31 | disposition home or self-care (01) ==
LOC: RAD 07:32
PROVIDERS: Visit Provider Nurse Practitioner Family
DX: S49.92XA Unspecified injury of left shoulder and upper arm, initial encounter (principal)
CPT/HCPCS: 73030